=== PATIENT | male | born 1980 | race African-American/Black ===

== ENCOUNTER 2017-07-23 04:44 | Observation (INO) ==
[2017-07-23] MEDS ORDERED: Nitroglycerin 0.4 MG TAB.SUBL SL PRN (05:08)
[2017-07-23] MEDS ORDERED: Aspirin 325 MG TABLET PO ONE (05:08)
--- NOTE | 2017-07-23 05:11 | Emergency Department Note ---
Disposition Clinical Impression: Chest pain Qualifiers: Chest pain type: unspecified Qualified Code(s): R07.9 - Chest pain, unspecified Dyspnea Qualifiers: Dyspnea type: dyspnea on exertion Qualified Code(s): R06.09 - Other forms of dyspnea Disposition: Admitted As Inpatient Condition: Good Time of Disposition: 05:18 Chest Pain HPI - General Chief Complaint: ED Chest Pain Stated Complaint: CP Time Seen by Provider: 07/23/17 04:55 Source: patient Mode of arrival: ambulatory Limitations: no limitations Vital Signs Reviewed: Yes Nursing Notes Reviewed: Yes - History of Present Illness HPI Narrative: Patient 36-year-old male with past medical history of hypertension, pericarditis that was diagnosed in 2013. He presents today due to chest pain. He states that the chest pain began about midnight which is 5 hours prior to arrival. Describes the pain as left-sided, dull ache with exacerbations of sharp pain, radiation to his left upper extremity. Associated shortness of breath. Currently rates his pain a 5 out of 10. Pain is worse when lying flat on his back, better when sitting up. He does state that this feels somewhat similar to previous episode of pericarditis. Denies any nausea, vomiting, fevers , abdominal pain, hematuria, dysuria, change in bowel habits. Denies any history of CT or stents. He does admit that he recently had an echocardiogram performed by a primary care physician and he is following up with rn interventional tomorrow to discuss these results. Severity scale (1-10): 7 - Related Data Home Medications Medication Instructions Recorded Confirmed Buspirone HCl [Buspar] 10 mg PO BID 07/18/17 07/23/17 Chlorthalidone 25 mg PO DAILY 07/18/17 07/23/17 hydrOXYzine HCl [Hydroxyzine HCl] 25 mg PO HS PRN 07/18/17 07/23/17 Allergies Allergy/AdvReac Type Severity Reaction Status Date / Time No Known Allergies Allergy Verified 07/18/17 09:02 Constitutional: Denies: fever ENT ED: Denies: ear pain, congestion, dysphagia Cardiovascular: Reports: chest pain Respiratory: Reports: dyspnea Gastrointestinal: Denies: abdominal pain, nausea, vomiting, diarrhea, constipation, hematemesis, melena, hematochezia Genitourinary: Denies: urgency, dysuria, frequency, hematuria Integumentary: Denies: rash Neurological: Denies: headache, weakness, numbness, paresthesias Chest Pain PMH - Past Medical History Medical history: Reports: hypertension - Social History Smoking Status: Former smoker Alcohol use: Reports: none Drug use: Reports: none Physical Exam - General Limitations: no limitations General appearance: alert - Head Head exam: atraumatic, normocephalic, normal inspection - Eye Eye exam: Present: normal appearance, PERRL, EOMI - ENT ENT exam: normal exam, normal oropharynx, mucous membranes moist - Neck Neck exam: Present: normal inspection, full ROM, trachea midline - Chest Chest inspection: Present: normal inspection, symmetric chest wall rise. Absent : tenderness, rash - Respiratory Respiratory exam: Present: normal lung sounds bilaterally. Absent: respiratory distress, wheezes, stridor, accessory muscle use, prolonged expiratory phase - Cardiovascular Cardiovascular exam: Present: regular rate, normal rhythm, normal heart sounds. Absent: systolic murmur, diastolic murmur, rubs - Abdominal Exam Abdominal exam: Present: soft, Non-Tender. Absent: tenderness, distention, guarding, rebound, rigidity - Extremities Exam Extremities exam: Present: normal inspection, full ROM. Absent: tenderness, pedal edema - Neurological Exam Neurological exam: Present: alert, oriented X3 - Psychiatric Psychiatric exam: Present: normal affect, normal mood - Skin Skin exam: Present: warm, dry, intact, normal color Course Course Narrative: Patient hypertensive with systolic 140s to 150s. Otherwise, the rest of vitals within normal limits. Physical exam shows lungs clear to auscultation, heart regular rate and rhythm. No appreciable rub or murmur. No reproducible chest pain on exam. No rash. Abdomen soft and nontender. EKG shows no acute ST elevation that would denote STEMI. However, he does have S1,Q3, T3 formation. Since his pain is worse with deep inspiration and worse with movement and he has this EKG finding, concerned for possible PE. Also concern for possible early pericarditis. We will obtain basic blood work, troponin, chest x-ray. We will likely order a CTA for further assessment. We will give the patient aspirin 325 mg, nitroglycerin for pain control. We will consider morphine if the patient has no relief with nitroglycerin. 06:36 mild elevation in ESR. Otherwise, CRP within normal limits. Troponin negative. BNP within normal limits. CBC and BMP shows no major abnormality. Patient was reevaluated after receiving 2 nitroglycerin. He states that his pain has reduced from 5 to a 3. He does still complain of some mild chest pain. According to records, patient had an echocardiogram recently that shows moderate diastolic dysfunction with an EF of 60%. Patient has never had a stress test or heart. Discussed admitting the patient for chest pain rule out, trending troponins. He is agreeable with this plan. Will cover with lovenox 1mg/kg. Vital Signs Temperature 98.2 F 07/23/17 04:47 Pulse Rate 84 07/23/17 04:47 Respiratory Rate 18 07/23/17 04:47 Blood Pressure 147/108 07/23/17 04:47 O2 Sat by Pulse Oximetry 100 07/23/17 04:47 Temperature 98.3 F 07/24/17 16:39 Pulse Rate 100 07/24/17 16:39 Respiratory Rate 16 07/24/17 16:39 Blood Pressure 115/78 07/24/17 16:39 O2 Sat by Pulse Oximetry 96 07/24/17 16:39 Oxygen Delivery Oxygen Delivery Room Air Chest Pain - MDM Narrative Medical decision making narrative: Patient hypertensive with systolic 140s to 150s. Otherwise, the rest of vitals within normal limits. Physical exam shows lungs clear to auscultation, heart regular rate and rhythm. No appreciable rub or murmur. No reproducible chest pain on exam. No rash. Abdomen soft and nontender. EKG shows no acute ST elevation that would denote STEMI. However, he does have S1,Q3, T3 formation. Since his pain is worse with deep inspiration and worse with movement and he has this EKG finding, concerned for possible PE. Also concern for possible early pericarditis. We will obtain basic blood work, troponin, chest x-ray. We will likely order a CTA for further assessment. We will give the patient aspirin 325 mg, nitroglycerin for pain control. We will consider morphine if the patient has no relief with nitroglycerin. 06:36 mild elevation in ESR. Otherwise, CRP within normal limits. Troponin negative. BNP within normal limits. CBC and BMP shows no major abnormality. Patient was reevaluated after receiving 2 nitroglycerin. He states that his pain has reduced from 5 to a 3. He does still complain of some mild chest pain. According to records, patient had an echocardiogram recently that shows moderate diastolic dysfunction with an EF of 60%. Patient has never had a stress test or heart. Discussed admitting the patient for chest pain rule out, trending troponins. He is agreeable with this plan. Will cover with lovenox 1mg/kg. - Medical Records Medical records reviewed: Yes I reviewed the patient's medical records. - Lab Data Lab results reviewed: Yes I reviewed the patient's lab results. Result diagrams: 07/24/17 04:42 07/24/17 04:42 Lab Results 07/23/17 07/23/17 07/23/17 Range/Units 05:16 05:16 05:16 WBC 7.4 (4.3-11.1) K/mcL RBC 5.99 H (4.19-5.50) M/mcL Hgb 15.0 (12.9-16.9) g/dL Hct 47.1 (37.5-50.1) % MCV 78.6 L (83.0-100.0) fL MCH 25.0 L (28.0-33.3) pg MCHC 31.8 (31.6-35.5) g/dL RDW 13.2 (11.5-14.5) % Plt Count 318 (140-400) K/mcL MPV 9.1 L (9.4-12.4) fL Immature Gran % 0.5 (0-4) % Seg Neutrophils % 58.6 % Lymphocytes % 31.2 % Monocytes % 7.1 % Eosinophils % 1.9 % Basophils % 0.7 % Neutrophils # 4.4 (1.6-8.9) K/mcL Lymphocytes # 2.3 (0.6-4.6) K/mcL Monocytes # 0.5 (0.0-1.3) K/mcL Eosinophils # 0.1 (0.0-0.6) K/mcL Basophils # 0.1 (0.0-0.2) K/mcL ESR (0-10) mm/hr PT 10.7 (9.4-12.1) Seconds INR 1.0 APTT 28.0 (26.0-36.0) Seconds Sodium (136-145) mEq/L Potassium (3.5-5.1) mEq/L Chloride (98-107) mEq/L Carbon Dioxide (23-29) mEq/L BUN (6-20) mg/dL Creatinine (0.70-1.30) mg/dL Est GFR ( Amer) (> 60) Est GFR (Non-Af Amer) (> 60) BUN/Creatinine Ratio (6-26) Glucose (70-105) mg/dL Est Mean Plasma Glucose mg/dl Hemoglobin A1c ( - 5.6) % Calculated Osmolality (280-300) Calcium (8.6-10.3) mg/dL Troponin I (< 0.04) ng/mL C-Reactive Protein (Less than 10) mg/L B-Natriuretic Peptide 9 (Less than 100) pg/mL 07/23/17 07/23/17 07/23/17 Range/Units 05:16 05:16 05:16 WBC (4.3-11.1) K/mcL RBC (4.19-5.50) M/mcL Hgb (12.9-16.9) g/dL Hct (37.5-50.1) % MCV (83.0-100.0) fL MCH (28.0-33.3) pg MCHC (31.6-35.5) g/dL RDW (11.5-14.5) % Plt Count (140-400) K/mcL MPV (9.4-12.4) fL Immature Gran % (0-4) % Seg Neutrophils % % Lymphocytes % % Monocytes % % Eosinophils % % Basophils % % Neutrophils # (1.6-8.9) K/mcL Lymphocytes # (0.6-4.6) K/mcL Monocytes # (0.0-1.3) K/mcL Eosinophils # (0.0-0.6) K/mcL Basophils # (0.0-0.2) K/mcL ESR 15 H (0-10) mm/hr PT (9.4-12.1) Seconds INR APTT (26.0-36.0) Seconds Sodium 139 (136-145) mEq/L Potassium 3.6 (3.5-5.1) mEq/L Chloride 106 (98-107) mEq/L Carbon Dioxide 25 (23-29) mEq/L BUN 13 (6-20) mg/dL Creatinine 1.09 (0.70-1.30) mg/dL Est GFR ( Amer) > 60 (> 60) Est GFR (Non-Af Amer) > 60 (> 60) BUN/Creatinine Ratio 12 (6-26) Glucose 145 H (70-105) mg/dL Est Mean Plasma Glucose mg/dl Hemoglobin A1c ( - 5.6) % Calculated Osmolality 291 (280-300) Calcium 9.4 (8.6-10.3) mg/dL Troponin I < 0.03 (< 0.04) ng/mL C-Reactive Protein < 5 (Less than 10) mg/L B-Natriuretic Peptide (Less than 100) pg/mL 07/23/17 Range/Units 05:16 WBC (4.3-11.1) K/mcL RBC (4.19-5.50) M/mcL Hgb (12.9-16.9) g/dL Hct (37.5-50.1) % MCV (83.0-100.0) fL MCH (28.0-33.3) pg MCHC (31.6-35.5) g/dL RDW (11.5-14.5) % Plt Count (140-400) K/mcL MPV (9.4-12.4) fL Immature Gran % (0-4) % Seg Neutrophils % % Lymphocytes % % Monocytes % % Eosinophils % % Basophils % % Neutrophils # (1.6-8.9) K/mcL Lymphocytes # (0.6-4.6) K/mcL Monocytes # (0.0-1.3) K/mcL Eosinophils # (0.0-0.6) K/mcL Basophils # (0.0-0.2) K/mcL ESR (0-10) mm/hr PT (9.4-12.1) Seconds INR APTT (26.0-36.0) Seconds Sodium (136-145) mEq/L Potassium (3.5-5.1) mEq/L Chloride (98-107) mEq/L Carbon Dioxide (23-29) mEq/L BUN (6-20) mg/dL Creatinine (0.70-1.30) mg/dL Est GFR ( Amer) (> 60) Est GFR (Non-Af Amer) (> 60) BUN/Creatinine Ratio (6-26) Glucose (70-105) mg/dL Est Mean Plasma Glucose 134 mg/dl Hemoglobin A1c 6.3 H ( - 5.6) % Calculated Osmolality (280-300) Calcium (8.6-10.3) mg/dL Troponin I (< 0.04) ng/mL C-Reactive Protein (Less than 10) mg/L B-Natriuretic Peptide (Less than 100) pg/mL - Radiology Data Radiology results reviewed: Yes I reviewed the patient's radiology results. - EKG Data EKG attestation: Yes I reviewed and interpreted this EKG. EKG results narrative: 07/23/2017 at 04:54. Normal sinus rhythm. Rate 89. MA 160. QRS. QTC 383. Normal axis. No acute STEMI. S1,Q3, T3 formation present. Heart Score - Score History: Moderately Suspicious EKG: Non Specific repolarisation Disturbance Age: Less than 45 Risk Factors: 1-2 risk factors Troponin: Less than normal limit HEART Score Total: 3 S.B.A.R. - S.B.A.R. Situation: Demographics, MOA Background: Presenting Complaint, Relevant PMH, Meds, & Allergies Assessment: Vital Signs, Course and respsone to treatment, Exam Concerns, Patient/Family Expectation, Pertinant Lab Results, Outstanding Labs Recommendation: Barrier(s) to disposition, Recommendation based on pending studies, treatments, or consults S.B.A.R. Report Given to: Dr. Beckett S.B.A.RPascual Repor Time: 06:48 Attestation Statement - Attestation Attestation: I examined this patient and my medical decision-making was reviewed with the Resident Physician. I agree with the documented findings, disposition and treatment plan as described except to the extent set forth below. Findings consistent with chest pain. There is evidence of S1 every [address] of the chest was performed. No evidence of pulmonary embolism. Recommend outpatient provocative testing in 48hours.
[2017-07-23 05:27] LABS: Basophils # 0.1 K/mcL (0.0-0.2); Basophils % 0.7 %; Eosinophils # 0.1 K/mcL (0.0-0.6); Eosinophils % 1.9 %; Hematocrit 47.1 % (37.5-50.1); Immature Granulocytes % 0.5 % (0-4); Lymphocytes # 2.3 K/mcL (0.6-4.6); Lymphocytes % 31.2 %; Mean Corpuscular HGB Conc 31.8 g/dL (31.6-35.5); Mean Corpuscular Volume 78.6 fL (83.0-100.0); Mean Platelet Volume 9.1 fL (9.4-12.4); Monocytes # 0.5 K/mcL (0.0-1.3); Monocytes % 7.1 %; Neutrophils # 4.4 K/mcL (1.6-8.9); Platelet Count 318 K/mcL (140-400); Red Blood Count 5.99 M/mcL (4.19-5.50); Red Cell Distribution Width 13.2 % (11.5-14.5); Segmented Neutrophils % 58.6 %
[2017-07-23 05:34] LABS: Prothrombin Time 10.7 Seconds (9.4-12.1)
[2017-07-23 05:43] LABS: BUN/Creatinine Ratio 12 (6-26); Blood Urea Nitrogen 13 mg/dL (6-20); C-Reactive Protein < 5 mg/L (Less than 10); Calcium 9.4 mg/dL (8.6-10.3); Carbon Dioxide 25 mEq/L (23-29); Chloride 106 mEq/L (98-107); Glucose 145 mg/dL (70-105); Osmolality,Calculated 291 (280-300); Potassium 3.6 mEq/L (3.5-5.1); Sodium 139 mEq/L (136-145); eGFR For African Americans > 60 (> 60); eGFR For Non-African Americans > 60 (> 60)
[2017-07-23] MEDS ORDERED: *HR* Enoxaparin 100 MG/ML SYRINGE SQ STA (06:41)
--- NOTE | 2017-07-23 08:56 | Internal Med History&Physical ---
Date of Encounter: 07/23/17 Time of Encounter: 08:36 Assessment and Plan (1) Chest pain Current visit: Yes Status: Acute Possible etiologies include recurrent pericarditis, anxiety, acute coronary syndrome. He does have history of previous pericarditis. I was not able to appreciate any ST or OR segment changes on ECG interpretation. ESR borderline elevated but CRP normal. CTA did not show PE or pericardial abnormalities. Initial troponin negative. - Cycle troponin - Oxycodone SL, Nitro, prn pain. - Consult Cardiology. recommendations appreciated if patient requires continuation of ACS, patient received Lovenox in ED. Also appreciate recommendation if outpatient versus continuing an inpatient workup. He has Cardiology office visit scheduled for tomorrow. Qualifiers: Chest pain type: unspecified Qualified Code(s): R07.9 - Chest pain, unspecified (2) Dyspnea Current visit: Yes Status: Acute Reviewing prior records on EMR, prior to admission for heart failure. His only major criteria is orthopnea, and minor criteria of dyspnea on ordinary exertion. Technically would not meet diagnosis based on history, physical exam , and CTA results. Would appreciate Cardiology recommendations on dyspnea. Qualifiers: Dyspnea type: dyspnea on exertion Qualified Code(s): R06.09 - Other forms of dyspnea (3) Diastolic dysfunction Current visit: No Status: Acute As seen on echocardiogram done 2 months ago. Potentially heart failure but not meeting diagnosis at this point. (4) Elevated hemoglobin A1c Current visit: Yes Status: Acute Reviewing prior records, A1C was 6.5% and today fasting glucose 140s, likely has diabetes mellitus. Will repeat A1C today, if >6.5%, he will need diabetes education upon discharge with follow-up with primary care physician. (5) Microcytosis Current visit: No Status: Acute Internal Medicine - H&P: HPI History of present illness: Mr. Foy is a 36 year old male with past medical history of hypertension, pericarditis (2013) presented for acutely worsening chest pain. Initial onset was 3 days ago as patient was laying down. Described as partly pressure/heavy and partly sharp located in left side of chest. Pain feels similar to prior episode of pericarditis. No radiation of pain. Pain comes and goes and lasts for several minutes at a time with left arm tingling. He does have worsening BISHOP, diaphoresis, and night sweats as well. Denies fevers/chills, n/v, recent URI/illness, sick contacts. Family history of mother with unspecified heart failure diagnosed at age 48. He reports having a left heart catheter in 2013, unsure of results. Recent Echocardiogram done in 05/2017 showed LVEF of 60% with moderate diastolic dysfunction. He had recent office visit with Hematology /Oncology 07/18/17 for microcytosis of unknown etiology. So far workup has been negative and they referred him to Cardiology for concern for heart failure. He has office appointment with Cardiology tomorrow but since pain became acutely worsened he presented to ED. In ED a ESR borderline elevated at 15, CRP within normal limits. CTA was negative for PE, BNP was within normal limits, initial troponin negative. ECG showed no ST/T wave changes. He was given Lovenox 1 mg/kg, aspirin 325 mg, and 2 nitroglycerin which he reported relieved his pain somewhat. Past Med Surg Social Fam HX - Past Medical History Medical history: hypertension - Social History Smoking Status: Former smoker Smokeless Tobacco Status: No Alcohol use: none Drug use: none Internal Medicine - H&P: Meds Buspirone HCl [Buspar] 10 mg PO BID 07/18/17 [History] Chlorthalidone 25 mg PO DAILY 07/18/17 [History] hydrOXYzine HCl [Hydroxyzine HCl] 25 mg PO HS PRN 07/18/17 [History] 3 Allergy/AdvReac Type Severity Reaction Status Date / Time No Known Allergies Allergy Verified 07/18/17 09:02 All Systems PM: A 10-system review of systems was performed and is negative for pertinent findings except as documented above in the HPI. - Constitutional Constitutional: excessive sweating, night sweats, no chills, no fever(s) - EENT Eyes: no change in vision, no discharge, no pain, no photophobia Ears: no ear discharge, no ear pain, no tinnitus Nose, mouth and throat: no dysphagia, no nasal discharge, no neck pain, no sore throat - Cardiovascular Cardiovascular ROS IM: chest pain, diaphoresis, dyspnea, dyspnea on exertion, no lightheadedness, no palpitations, no syncope - Respiratory Respiratory: dyspnea, no cough, no wheezing, no excessive phlegm production - Gastrointestinal Gastrointestinal: no abdominal pain, no diarrhea, no hematemesis, no hematochezia, no melena, no nausea, no vomiting - Musculoskeletal Musculoskeletal ROS IM: numbness, tingling, no arthralgias, no joint swelling, no muscle weakness - Integumentary Integumentary IM: no rash, no unusual bruising - Neurological Neurological ROS: no confusion, no convulsions, no focal weakness, no numbness, no tingling, no tremor(s) - Hematologic/Lymphatic Hematologic/Lymphatic: no easy bruising - Constitutional Vitals: Temp Pulse Resp BP Pulse Ox 98.2 F 70 18 119/83 99 07/23/17 04:47 07/23/17 07:55 07/23/17 07:55 07/23/17 07:55 07/23/17 07:55 - Head Head exam: Present: atraumatic, normocephalic - Eye Eye exam: Present: PERRL, conjuntiva pink, sclera anicteric Pupils: Present: PERRL - Neck Neck exam general surgery: Present: supple, trachea midline. Absent: lymphadenopathy - Respiratory Respiratory exam: Present: CTAB. Absent: accessory muscle use, rales, rhonchi, wheezes - Cardiovascular Cardiovascular exam: Present: RRR, +S1, +S2. Absent: diastolic murmur, gallop, rubs, systolic murmur - GI/Abdominal GI/Abdominal exam: Present: normal bowel sounds, soft, no peritoneal signs. Absent: distended, tenderness - Extremities Exam Extremities exam: Present: warm, radial pulses palpable and symmetrical. Absent : calf tenderness, cyanotic, pedal edema - Neurological Exam Neurological exam: Present: CN II-XII intact, oriented X3, no focal deficits. Absent: pronater drift, facial droop, speech deficit - Skin Skin exam: Present: dry, intact Internal Med - H&P Results - Labs CBC & Chem 7: 07/23/17 05:16 07/23/17 05:16 Labs: Short CBC 07/23/17 Range/Units 05:16 WBC 7.4 (4.3-11.1) K/mcL Hgb 15.0 (12.9-16.9) g/dL Hct 47.1 (37.5-50.1) % Plt Count 318 (140-400) K/mcL Neutrophils # 4.4 (1.6-8.9) K/mcL BMP 07/23/17 05:16 Sodium 139 Potassium 3.6 Chloride 106 Carbon Dioxide 25 BUN 13 Creatinine 1.09 Glucose 145 H Calcium 9.4 Cardiac Enzymes 07/23/17 Range/Units 05:16 Troponin I < 0.03 (< 0.04) ng/mL - Impressions ITS Impressions Chest X-Ray 07/23/17 05:08 IMPRESSION: No acute process. D/ / Skyler Gastelum MD / Skyler Gastelum MD Interpreting Provider: Skyler Gastelum MD Chest CTA 07/23/17 05:24 IMPRESSION: No evidence of pulmonary embolism or acute pulmonary abnormality. No pericardial effusion. D/ / Perez Almanza MD / Perez Almanza MD Interpreting Provider: Perez Almanza MD
[2017-07-23] MEDS ORDERED: OXYCODONE Oral CONC 10 MG/0.5 ML ORAL.SYG SL PRN (09:45)
[2017-07-23] MEDS ORDERED: Naloxone 0.4 MG/ML INJ IVP PRN (09:45)
[2017-07-23] MEDS ORDERED: hydrOXYzine pamoate 25 MG CAPSULE PO PRN (09:54)
[2017-07-24 04:59] LABS: Basophils % 0.5 %; Eosinophils # 0.1 K/mcL (0.0-0.6); Eosinophils % 1.8 %; Hematocrit 44.9 % (37.5-50.1); Hemoglobin 14.6 g/dL (12.9-16.9); Immature Granulocytes % 0.3 % (0-4); Lymphocytes # 2.4 K/mcL (0.6-4.6); Mean Corpuscular HGB Conc 32.5 g/dL (31.6-35.5); Mean Corpuscular Hemoglobin 25.1 pg (28.0-33.3); Mean Corpuscular Volume 77.3 fL (83.0-100.0); Mean Platelet Volume 8.8 fL (9.4-12.4); Monocytes # 0.6 K/mcL (0.0-1.3); Monocytes % 7.5 %; Neutrophils # 4.8 K/mcL (1.6-8.9); Platelet Count 272 K/mcL (140-400); Red Blood Count 5.81 M/mcL (4.19-5.50); Red Cell Distribution Width 13.2 % (11.5-14.5); Segmented Neutrophils % 59.9 %
[2017-07-24 05:38] LABS: BUN/Creatinine Ratio 11 (6-26); Blood Urea Nitrogen 12 mg/dL (6-20); Calcium 9.4 mg/dL (8.6-10.3); Carbon Dioxide 27 mEq/L (23-29); Chloride 105 mEq/L (98-107); Glucose 114 mg/dL (70-105); Osmolality,Calculated 291 (280-300); Potassium 3.5 mEq/L (3.5-5.1); Sodium 140 mEq/L (136-145); eGFR For African Americans > 60 (> 60); eGFR For Non-African Americans > 60 (> 60)
[2017-07-24 08:06] LABS: Hemoglobin A1C 6.3 %
--- NOTE | 2017-07-24 09:06 | Electrocardiograph Report ---
[facility] [employer] [facility] Test Date: 2017-07-23 Pat Name: Ricardo Foy Department: 104 Room: 2SH33 Gender: M Regulatory Auditor: EKP : 1980 Requested By: Silvano Mejia Order Number: [id number] Reading MD: Timur Lake MD Measurements Intervals [place] Rate: 93 P: 117 WI: 139 QRS: 114 QRSD: 97 T: 141 QT: 332 QTc: 383 Interpretive Statements SINUS RHYTHM ARM LEADS REVERSED ATYPICAL ECG Electronically Signed On 07-24-2017 9:04:59 EST by Timur Lake MD
--- NOTE | 2017-07-24 14:37 | Cardiology Consult Note ---
<Raúl Wu R - Last Filed: 07/24/17 15:08> Date of Encounter: 07/24/17 Time of Encounter: 14:30 Assessment and Plan (1) Chest pain Current Visit: Yes Status: Acute Hx of pericarditis in 2012. LHC at that time showed no CAD. EKG without ischemic changes. Troponin negative x 2. No evidence of pericarditis on EKG and no acute illness. Chest pain worse when lying flat, not worsened on exertion. Echo 05/2017 EF preserved, moderate diastolic dysfunction. At this time do not suspect pericarditis or ACS. Atypical symptoms. Stop heparin gtt. No further cardiac work-up warranted at this time. Recommend evaluating for noncardiac causes of chest pain. Anticipate sign off once seen and evaluated by Dr. Bah. Qualifiers: Chest pain type: unspecified Qualified Code(s): R07.9 - Chest pain, unspecified (2) Diastolic dysfunction Current Visit: Yes Status: Chronic Echo 05/2017 moderate diastolic dysfunction. Pt admits to dyspnea, difficult to play with his children. Recent PFTs normal. Pt admits to excessive salt and fluid intake. Discussed and recommended Na and fluid restricted diet. CXR without acute findings and normal BNP. Chest CT negative for PE. Discussed with Dr. Bah, will increase Chlorthalidone to 50mg daily. Discussion w patient/family: The assessment and plan as outlined above was discussed with the patient and/or family members who expressed understanding and agreement. All questions were answered. Thank you for involving us in the care of your patient. Please call with any questions. I will discuss all the above with Dr. Bah and make changes as necessary. History of Present Illness Consult date: 07/24/17 Requesting physician: Deborah Teague Consult reason: chest pain Chief complaint: chest pain, dyspnea History of present illness: Mr. Foy is a 36 year old male with past medical history of hypertension, pericarditis (2012) with normal LHC at that time that presented for worsening chest pain. Initial onset was 3 days ago as patient was laying down, worse when lying down. Described as partly pressure/heavy and partly sharp located in left side of chest. Pain feels similar to prior episode of pericarditis. No radiation of pain. He reports worsening BISHOP, diaphoresis, and night sweats as well. Denies fevers/chills, n/v, recent URI/illness, sick contacts. Echocardiogram done in 05/2017 showed LVEF of 60% with moderate diastolic dysfunction. He had recent office visit with Hematology/Oncology 07/18/17 for microcytosis of unknown etiology. So far workup has been negative and they referred him to Cardiology for concern for heart failure. He has office appointment with Cardiology 07/26/17. In ED ESR borderline elevated at 15, CRP within normal limits. CTA was negative for PE, BNP was within normal limits, troponin negative x2. ECG showed no significant ST/T wave changes. He was given Lovenox 1 mg/kg, aspirin 325 mg, and 2 nitroglycerin which he reported relieved his pain somewhat. Pt is currently chest pain free. He states his most bothersome symptom is dyspnea and he cannot play with his kids without getting short of breath. Upon further discussion, pt admits to excessive salt intake and excessive fluid intake >2L per day and mostly pop. Cardiology consulted for chest pain. Prior CV testing: TTE 06/08/17:LVEF 60%. Moderate left ventricular diastolic dysfunction. Normal right ventricular structure and function. No significant valvular dysfunction. No pulmonary hypertension. Past Med Surg Social Fam HX - Past Medical History Medical history: hypertension - Social History Smoking Status: Former smoker Smokeless Tobacco Status: No Alcohol use: none Drug use: none Medications and Allergies Buspirone HCl [Buspar] 10 mg PO BID 07/18/17 [History] Chlorthalidone 25 mg PO DAILY 07/18/17 [History] hydrOXYzine HCl [Hydroxyzine HCl] 25 mg PO HS PRN 07/18/17 [History] 3 Allergy/AdvReac Type Severity Reaction Status Date / Time No Known Allergies Allergy Verified 07/18/17 09:02 All Systems Review: A 10-system review of systems was performed and is negative for pertinent findings except as documented above in the HPI. - Cardiovascular Cardiovascular: as per HPI, chest pain at rest, chest pain with exertion, dyspnea at rest, dyspnea on exertion - Respiratory Respiratory: dyspnea Physical Examination Vital Signs, Last 4 Hours Temp Pulse Resp BP Pulse Ox 07/24/17 12:50 98.1 F 91 16 117/87 97 Vital Signs Temp Pulse Resp BP Pulse Ox 07/24/17 12:50 98.1 F 91 16 117/87 97 07/24/17 08:13 97.9 F 86 15 131/84 97 07/24/17 04:00 98.0 F 97 18 132/89 100 07/24/17 01:23 97 07/24/17 01:00 72 18 141/95 97 07/23/17 21:00 98.2 F 81 16 141/95 97 07/23/17 17:30 18 132/90 99 07/23/17 17:00 84 18 132/90 99 Intake and Output 07/23/17 07/24/17 07/24/17 23:59 07:59 15:59 Intake Total 0 / 0 480 / 480 Output Total 0 / 0 0 / 0 Balance 0 / 0 0 / 0 480 / 480 Intake: Oral 0 / 0 480 / 480 Output: Urine 0 / 0 0 / 0 Other: Meal Lunch Percent of Meal Consumed 100% Weight 95.4 kg Patient Weight 07/24/17 23:59 Weight 95.4 kg General: Conversant, No Apparent Distress HEENT: Atraumatic, Normocephaly, Mucus Membranes Moist Neck: No JVD, Normal carotid pulses Cardiac: Reg Rate and Rhythm, Normal S1 and S2, No Murmur Lungs: Normal Breath Sounds, No Wheeze, Rales, Rhonchi Neuro: Alert and responsive, No focal deficits noted Abdomen: Soft, Non-Tender Skin: No rashes noted on visualized skin Musculoskeletal: No Chest Wall Tenderness Extremities: No Clubbing, No Cyanosis, No Edema, Normal Pulses Results 07/24/17 04:42 07/24/17 04:42 Lab Results 07/23/17 07/24/17 07/24/17 15:21 04:42 04:42 WBC 8.0 Hgb 14.6 Hct 44.9 Plt Count 272 Sodium 140 Potassium 3.5 Chloride 105 Carbon Dioxide 27 BUN 12 Creatinine 1.13 Glucose 114 H Calcium 9.4 Troponin I < 0.03 Short CBC 07/24/17 Range/Units 04:42 WBC 8.0 (4.3-11.1) K/mcL Hgb 14.6 (12.9-16.9) g/dL Hct 44.9 (37.5-50.1) % Plt Count 272 (140-400) K/mcL Neutrophils # 4.8 (1.6-8.9) K/mcL BMP 07/24/17 Range/Units 04:42 Sodium 140 (136-145) mEq/L Potassium 3.5 (3.5-5.1) mEq/L Chloride 105 (98-107) mEq/L Carbon Dioxide 27 (23-29) mEq/L BUN 12 (6-20) mg/dL Creatinine 1.13 (0.70-1.30) mg/dL Glucose 114 H (70-105) mg/dL Calcium 9.4 (8.6-10.3) mg/dL Cardiac Enzymes 07/23/17 Range/Units 15:21 Troponin I < 0.03 (< 0.04) ng/mL Active Medications Acetaminophen (Tylenol) 650 mg PO Q6HR PRN PRN Reason: Mild Pain/Fever Stop: 01/22/18 09:46 Buspirone HCl (Buspar) 10 mg PO BID CAROLE Stop: 01/22/18 10:01 Last Admin: 07/24/17 10:58 Dose: 10 mg Chlorthalidone (Chlorthalidone) 25 mg PO DAILY CAROLE Stop: 01/22/18 10:01 Last Admin: 07/24/17 09:10 Dose: 25 mg Hydroxyzine Pamoate (Hydroxyzine Pamoate) 25 mg PO HS PRN PRN Reason: Sleep Naloxone HCl (Narcan) 0.4 mg IVP Q2MIN PRN PRN Reason: SEE COMMENTS Stop: 01/22/18 09:46 Nitroglycerin (Nitroglycerin) 0.4 mg SL Q5MIN PRN PRN Reason: Chest Pain Stop: 01/22/18 05:09 Last Admin: 07/23/17 05:27 Dose: 0.4 mg Oxycodone HCl (Oxycodone Oral Conc) 5 mg SL Q4H PRN; Protocol PRN Reason: mild to moderate pain Stop: 01/22/18 09:46 - Imaging and Cardiology Echo: report reviewed - EKG Interpretation EKG results cardiology: personally reviewed (SR) Consult Discharge Plan - Plan Referrals: Chandan Abel MD [Primary Care Provider] - <Yanira Bah - Last Filed: 07/24/17 17:28> Date of Encounter: 07/24/17 - Attending Attestation I examined this patient and my medical decision-making was reviewed with the HEALTH PHYSICIST. I agree with the documented findings, disposition and treatment plan as described. Mr. Foy presents with symptoms of dyspnea as well as chest pain. He states symptoms of dyspnea were ongoing for a few months. Chest pain symptoms he just started noticing over the weekend and are atypical in presentation - describes pleuritic component sometimes exacerbated by laying flat but not always. Workup so far has demonstrated negative troponins, unremarkable CXR, CTA negative for PE, Echo normal LVEF, BNP normal. Blood pressures initially hypertensive. CRP normal, mildly elevated ESR. ECG unremarkable. Recent PFTs are normal. Reviewed patient's medical chart - not taking BP medication documented on PCP visit 07/23/2016. Hypertension could be an explanation to patient's symptoms of dyspnea. He's been hypertensive on his outpatient BP readings. I also personally reviewed his Echo again - documented as moderate diastolic dysfunction. However, valsalva was not performed and therefore degree of diastolic dysfunction could not be quantified. Nevertheless, it is reasonable to increase his BP medication which is also a diuretic at this time. He does have a history of pericarditis - no present ECG evidence of pericarditis. No friction rub on exam. Only pertinent finding is a mildly elevated ESR (CRP is normal). There are no definite criteria for pericarditis in this case. However, his symptoms of pleuritic chest pain and presence of mild elevation of ESR is suspicious. Outside of uncontrolled BP (which appears relatively good now), there does not appear to be a definite explanation for his symptoms. I have given the patient the option of treatment for pericarditis. He is open to a trial. We will start colchicine and indomethacin. Assessment and Plan Discussion w patient/family: The assessment and plan as outlined above was discussed with the patient and/or family members who expressed understanding and agreement. All questions were answered. Thank you for involving us in the care of your patient. Please call with any questions. History of Present Illness History of present illness: Mr. Fyo is a 36 year old male All Systems Review: A 10-system review of systems was performed and is negative for pertinent findings except as documented above in the HPI. Physical Examination Vital Signs, Last 4 Hours Temp Pulse Resp BP Pulse Ox 07/24/17 16:39 98.3 F 100 16 115/78 96 Results 07/24/17 04:42 07/24/17 04:42 Lab Results 07/24/17 07/24/17 04:42 04:42 WBC 8.0 Hgb 14.6 Hct 44.9 Plt Count 272 Sodium 140 Potassium 3.5 Chloride 105 Carbon Dioxide 27 BUN 12 Creatinine 1.13 Glucose 114 H Calcium 9.4
[2017-07-24] MEDS: Acetaminophen 325 MG TABLET PO PRN (15:48)
[2017-07-24] MEDS: Colchicine 0.6 MG TABLET PO SCH (20:35)
--- NOTE | 2017-07-24 21:33 | Internal Med Progress Note ---
Date of Encounter: 07/24/17 Time of Encounter: 15:43 - Assessment and plan (1) Chest pain Current Visit: Yes Status: Acute Assessment and plan: Currently resolved. Etiology unclear but pericarditis is a possibility. Cardiology consulted and recommendations are appreciated. Will do a trial of colchicine and indomethacin. Qualifiers: Chest pain type: unspecified Qualified Code(s): R07.9 - Chest pain, unspecified (2) Dyspnea Current Visit: Yes Status: Acute Qualifiers: Dyspnea type: dyspnea on exertion Qualified Code(s): R06.09 - Other forms of dyspnea (3) Diastolic dysfunction Current Visit: Yes Status: Chronic (4) Elevated hemoglobin A1c Current Visit: Yes Status: Acute Assessment and plan: A1C 6.3% patient is pre-diabetic, he will need close monitoring and follow-up with primary care physician in regards to diet and lifestyle modification. (5) Microcytosis Current Visit: No Status: Acute (6) Hypertension Current Visit: Yes Status: Acute Assessment and plan: Continue chlorthalidone Qualifiers: Hypertension type: essential hypertension Qualified Code(s): I10 - Essential (primary) hypertension - Subjective Interval history: Patient hasn't had any episodes of chest pain, dyspnea about the same. - Constitutional Vitals: Temp Pulse Resp BP Pulse Ox 97.7 F 95 20 123/85 97 07/24/17 20:00 07/24/17 20:00 07/24/17 20:00 07/24/17 20:00 07/24/17 20:00 - Head Head exam: Present: atraumatic, normocephalic - Eye Eye exam: Present: PERRL, conjuntiva pink, sclera anicteric Pupils: Present: PERRL - Neck Neck exam general surgery: Present: supple, trachea midline. Absent: lymphadenopathy - Respiratory Respiratory exam: Present: CTAB. Absent: accessory muscle use, rales, rhonchi, wheezes - Cardiovascular Cardiovascular exam: Present: RRR, +S1, +S2. Absent: diastolic murmur, gallop, rubs, systolic murmur - GI/Abdominal GI/Abdominal exam: Present: normal bowel sounds, soft, no peritoneal signs. Absent: distended, tenderness - Extremities Exam Extremities exam: Present: warm, radial pulses palpable and symmetrical. Absent : calf tenderness, cyanotic, pedal edema - Neurological Exam Neurological exam: Present: CN II-XII intact, oriented X3, no focal deficits. Absent: pronater drift, facial droop, speech deficit - Skin Skin exam: Present: dry, intact Internal Medicine: Result - Labs CBC & Chem 7: 07/24/17 04:42 07/24/17 04:42 Labs: Short CBC 07/24/17 Range/Units 04:42 WBC 8.0 (4.3-11.1) K/mcL Hgb 14.6 (12.9-16.9) g/dL Hct 44.9 (37.5-50.1) % Plt Count 272 (140-400) K/mcL Neutrophils # 4.8 (1.6-8.9) K/mcL BMP 07/24/17 04:42 Sodium 140 Potassium 3.5 Chloride 105 Carbon Dioxide 27 BUN 12 Creatinine 1.13 Glucose 114 H Calcium 9.4 - ABG Interpretation ABG results: PT/INR, D-dimer PT 10.7 Seconds (9.4-12.1) 07/23/17 05:16 Consult Discharge Plan - Plan Referrals: Chandan Abel MD [Primary Care Provider] -
[2017-07-25] MEDS: Colchicine 0.6 MG TABLET PO SCH (08:58)
[2017-07-25] MEDS: Indomethacin 25 MG CAPSULE PO SCH ×3 (08:58→17:08)
--- NOTE | 2017-07-25 11:11 | Cardiology Progress Note ---
Date of Encounter: 07/25/17 Time of Encounter: 11:11 Assessment and Plan (1) Chest pain Current Visit: Yes Status: Acute Hx of pericarditis in 2012. LHC at that time showed no CAD. EKG without ischemic changes. Troponin negative x 2. Chest pain worse when lying flat, not worsened on exertion. Mildly elevated ESR (CRP is normal). There are no definite criteria for pericarditis in this case. However, given symptoms of pleuritic chest pain and presence of mild elevation of ESR, Dr. Bah gave pt the option of treatment for pericarditis. Started colchicine and indomethacin yesterday evening. Pt reports since medication has been started he has been chest pain free. Still reports dyspnea on standing and reports his HR increases on standing. Telemetry reviewed--artifact, but highest HR noted 120s, SR. No arrhythmias noted. Echo 05/2017 EF preserved, moderate diastolic dysfunction. Given possibility of recurrent pericarditis, recommend continuing colchicine for 6 months, per treatment guidelines. Continue indomethacin 2-3 weeks and wean off. Recommend keeping follow-up appointment with Dr. Hickey scheduled for tomorrow. Cardiology signing off. Reconsult PRN. Okay to be d/c'd home from a cardiac standpoint. Qualifiers: Chest pain type: unspecified Qualified Code(s): R07.9 - Chest pain, unspecified (2) Diastolic dysfunction Current Visit: Yes Status: Chronic Echo 05/2017 moderate diastolic dysfunction. Pt admits to dyspnea, difficult to play with his children. Recent PFTs normal. Pt admits to excessive salt and fluid intake. Discussed and recommended Na and fluid restricted diet. CXR without acute findings and normal BNP. Chest CT negative for PE. Increased Chlorthalidone to 50mg daily. Recommend medication compliance and optimal BP control. Discussion w patient/family: The assessment and plan as outlined above was discussed with the patient and/or family members who expressed understanding and agreement. All questions were answered. Thank you for involving us in the care of your patient. Please call with any questions. I will discuss all the above with Dr. Bah and make changes as necessary. Subjective Principal diagnosis: Chest pain, diastolic dysfunction Interval history: Mildly elevated ESR (CRP is normal). There are no definite criteria for pericarditis in this case. However, given symptoms of pleuritic chest pain and presence of mild elevation of ESR, gave pt the option of treatment for pericarditis. Start colchicine and indomethacin yesterday evening. Pt reports since medication has been started he has been chest pain free. Still reports dyspnea on standing and reports his HR increases on standing. Telemetry reviewed --artifact, but highest HR noted 120s, SR. No arrhythmias noted. Objective Vital Signs, Last 4 Hours Temp Pulse Resp BP Pulse Ox 07/25/17 09:21 97.9 F 79 20 120/81 97 07/25/17 07:55 97.7 F 84 16 115/90 97 Vital Signs Temp Pulse Resp BP Pulse Ox 07/25/17 09:21 97.9 F 79 20 120/81 97 07/25/17 07:55 97.7 F 84 16 115/90 97 07/25/17 03:26 97.8 F 88 18 111/81 97 07/24/17 23:27 98.1 F 87 16 137/98 96 07/24/17 20:00 97.7 F 95 20 123/85 97 07/24/17 16:39 98.3 F 100 16 115/78 96 07/24/17 12:50 98.1 F 91 16 117/87 97 Intake and Output 07/24/17 07/25/17 07/25/17 23:59 07:59 15:59 Intake Total 0 / 0 Output Total 0 / 0 Balance 0 / 0 Intake: Oral 0 / 0 Output: Urine 0 / 0 Other: # Voids 1 Weight 95.4 kg 96.417 kg Patient Weight 07/25/17 23:59 Weight 96.417 kg General: Conversant, No Apparent Distress HEENT: Atraumatic, Normocephaly, Mucus Membranes Moist Neck: No JVD, Normal carotid pulses Cardiac: Reg Rate and Rhythm, Normal S1 and S2, No Murmur Lungs: Normal Breath Sounds, No Wheeze, Rales, Rhonchi Neuro: Alert and responsive, No focal deficits noted Abdomen: Soft, Non-Tender Skin: No rashes noted on visualized skin Musculoskeletal: No Chest Wall Tenderness Extremities: No Clubbing, No Cyanosis, No Edema, Normal Pulses Results 07/24/17 04:42 07/24/17 04:42 Active Medications Acetaminophen (Tylenol) 650 mg PO Q6HR PRN PRN Reason: Mild Pain/Fever Stop: 01/22/18 09:46 Last Admin: 07/24/17 15:48 Dose: 650 mg Buspirone HCl (Buspar) 10 mg PO BID [facility] Stop: 01/22/18 10:01 Last Admin: 07/25/17 08:58 Dose: 10 mg Chlorthalidone (Chlorthalidone) 50 mg PO DAILY [facility] Stop: 01/24/18 09:01 Last Admin: 07/25/17 08:58 Dose: 50 mg Colchicine (Colcrys) 0.6 mg PO BID [facility] Stop: 01/23/18 21:01 Last Admin: 07/25/17 08:58 Dose: 0.6 mg Hydroxyzine Pamoate (Hydroxyzine Pamoate) 25 mg PO HS PRN PRN Reason: Sleep Indomethacin (Indocin) 50 mg PO TIDWM CAROLE PRN Reason: Protocol Stop: 01/24/18 08:01 Last Admin: 07/25/17 08:58 Dose: 50 mg Naloxone HCl (Narcan) 0.4 mg IVP Q2MIN PRN PRN Reason: SEE COMMENTS Stop: 01/22/18 09:46 Nitroglycerin (Nitroglycerin) 0.4 mg SL Q5MIN PRN PRN Reason: Chest Pain Stop: 01/22/18 05:09 Last Admin: 07/23/17 05:27 Dose: 0.4 mg Oxycodone HCl (Oxycodone Oral Conc) 5 mg SL Q4H PRN; Protocol PRN Reason: mild to moderate pain Stop: 01/22/18 09:46 Last Admin: 07/24/17 20:35 Dose: 5 mg - EKG Interpretation EKG results cardiology: other (12 hr tele AVG HR 79, no significant pauses or arrhythmias) Consult Discharge Plan - Plan Referrals: Chandan Abel MD [Primary Care Provider] -
[2017-07-25] MEDS: Acetaminophen 325 MG TABLET PO PRN (12:46)
--- NOTE | 2017-07-25 15:56 | Discharge Summary ---
Date of Encounter: 07/25/17 Time of Encounter: 15:54 - Discharge Diagnosis (1) Chest pain Priority: Primary Status: Acute Qualifiers: Chest pain type: unspecified Qualified Code(s): R07.9 - Chest pain, unspecified (2) Dyspnea Priority: Secondary Status: Acute Qualifiers: Dyspnea type: dyspnea on exertion Qualified Code(s): R06.09 - Other forms of dyspnea (3) Diastolic dysfunction Priority: Secondary Status: Chronic (4) Elevated hemoglobin A1c Priority: Secondary Status: Acute (5) Microcytosis Priority: Secondary Status: Acute (6) Hypertension Priority: Secondary Status: Acute Qualifiers: Hypertension type: essential hypertension Qualified Code(s): I10 - Essential (primary) hypertension - Discharge Medications Prescriptions: Colchicine [Colcrys] 0.6 mg PO BID #60 tablet Indomethacin [Indocin] 50 mg PO TIDWM #42 capsule Home Medications: Buspirone HCl [Buspar] 10 mg PO BID 07/18/17 [History] Chlorthalidone 25 mg PO DAILY 07/18/17 [History] hydrOXYzine HCl [Hydroxyzine HCl] 25 mg PO HS PRN 07/18/17 [History] Colchicine [Colcrys] 0.6 mg PO BID #60 tablet 07/25/17 [Rx] Indomethacin [Indocin] 50 mg PO TIDWM #42 capsule 07/25/17 [Rx] Allergies/Adverse Reactions: 3 Allergy/AdvReac Type Severity Reaction Status Date / Time No Known Allergies Allergy Verified 07/18/17 09:02 Date of admission: 07/23/17 12:47 Primary care physician: Chandan Abel MD Discharging clinician: Deborah Teague - Patient Status Disposition: Home, Self-Care Condition: Good Functional capacity at discharge: independent ambulation Overall status at discharge: patient is back to baseline - Discharge Instructions Follow Up With: Chandan Abel MD [Primary Care Provider] - - Diet and Activity Activity: increase activity as tolerated Diet: advance to your usual diet Hospital course: Mr. Foy is a 36 year old male with past medical history of hypertension, pericarditis (2013) presented for acutely worsening chest pain. Initial onset was 3 days ago as patient was laying down. Described as partly pressure/heavy and partly sharp located in left side of chest. Pain feels similar to prior episode of pericarditis. No radiation of pain. Pain comes and goes and lasts for several minutes at a time with left arm tingling. He does have worsening BISHOP, diaphoresis, and night sweats as well. Denies fevers/chills, n/v, recent URI/illness, sick contacts. Family history of mother with unspecified heart failure diagnosed at age 48. He reports having a left heart catheter in 2013, unsure of results. Recent Echocardiogram done in 05/2017 showed LVEF of 60% with moderate diastolic dysfunction. He had recent office visit with Hematology /Oncology 07/18/17 for microcytosis of unknown etiology. So far workup has been negative and they referred him to Cardiology for concern for heart failure. He has office appointment with Cardiology tomorrow but since pain became acutely worsened he presented to ED. Patient admitted for ACS rule out and further rule out. Troponin were cycled and negative. CTA chest was negative for PE, BNP was within normal limits, ECG showed no ST/T wave changes. In the ED was given 1 mg/kg then, aspirin and 2 NTG. Cardiology consulted, likely this episode not related to ACS and possibly not pericarditis though he does have a history of pericarditis. Patient was open to starting indomethacin and colchicine and follow-up with Cardiology. He was discharged home in stable condition. - Time Spent with Patient Total time spent providing and/or coordinating discharge services: - Constitutional Vitals: Temp Pulse Resp BP Pulse Ox 98.5 F 78 20 123/83 98 07/25/17 11:53 07/25/17 11:53 07/25/17 11:53 07/25/17 11:53 07/25/17 11:53 - Head Head exam: Present: atraumatic, normocephalic - Eye Eye exam: Present: PERRL, conjuntiva pink, sclera anicteric Pupils: Present: PERRL - Neck Neck exam general surgery: Present: supple, trachea midline. Absent: lymphadenopathy - Respiratory Respiratory exam: Present: CTAB. Absent: accessory muscle use, rales, rhonchi, wheezes - Cardiovascular Cardiovascular exam: Present: RRR, +S1, +S2. Absent: diastolic murmur, gallop, rubs, systolic murmur - GI/Abdominal GI/Abdominal exam: Present: normal bowel sounds, soft, no peritoneal signs. Absent: distended, tenderness - Extremities Exam Extremities exam: Present: warm, radial pulses palpable and symmetrical. Absent : calf tenderness, cyanotic, pedal edema - Neurological Exam Neurological exam: Present: CN II-XII intact, oriented X3, no focal deficits. Absent: pronater drift, facial droop, speech deficit - Skin Skin exam: Present: dry, intact
[2017-07-25 16:31] VITALS: BP 117/74
[2017-07-25] MEDS ORDERED: 0.9 % Sodium Chloride 1,000 ML IVC SCH (18:15)
== END 2017-07-25 18:44 | disposition home or self-care (01) ==
LOC: EMEROO 04:44 → 2SOUTHHOLD 04:44 → 3BNU 07-25 09:15
PROVIDERS: ADMIT Family Medicine; ATTEND Registered Nurse

== ENCOUNTER 2017-08-01 02:16 | Observation (INO) ==
[2017-08-01] MEDS ORDERED: Aspirin 325 MG TABLET PO ONE (02:37)
[2017-08-01 02:45] LABS: Basophils % 0.6 %; Eosinophils # 0.1 K/mcL (0.0-0.6); Eosinophils % 1.9 %; Hematocrit 40.5 % (37.5-50.1); Hemoglobin 13.5 g/dL (12.9-16.9); Immature Granulocytes % 0.3 % (0-4); Lymphocytes # 2.3 K/mcL (0.6-4.6); Lymphocytes % 34.8 %; Mean Corpuscular HGB Conc 33.3 g/dL (31.6-35.5); Mean Corpuscular Hemoglobin 25.6 pg (28.0-33.3); Mean Corpuscular Volume 76.7 fL (83.0-100.0); Mean Platelet Volume 9.1 fL (9.4-12.4); Monocytes # 0.6 K/mcL (0.0-1.3); Monocytes % 8.9 %; Neutrophils # 3.6 K/mcL (1.6-8.9); Platelet Count 281 K/mcL (140-400); Red Blood Count 5.28 M/mcL (4.19-5.50); Red Cell Distribution Width 12.6 % (11.5-14.5); Segmented Neutrophils % 53.5 %
--- NOTE | 2017-08-01 02:45 | Emergency Department Note ---
Disposition Clinical Impression: Acute electrocardiogram changes Chest pain Qualifiers: Chest pain type: precordial pain Qualified Code(s): R07.2 - Precordial pain Disposition: Admitted As Inpatient Condition: Fair Chest Pain HPI - General Chief Complaint: ED Chest Pain Stated Complaint: chest pain Time Seen by Provider: 08/01/17 02:26 Source: patient, family, EMS Mode of arrival: EMS Limitations: no limitations Vital Signs Reviewed: Yes Nursing Notes Reviewed: Yes - History of Present Illness Pt complaint: chest pain Onset (ago): week(s) (2) Duration: intermittent Onset: during rest, during exertion, other (worse tonight) Pain Location: substernal Severity: moderate Severity scale (1-10): 7 Quality: sharp Pain Radiation: none Improves with: nitroglycerin (EMS gave SL NTG x 2 with "some relief") Worsens with: nothing Context: other (recently admitted for CP - had CTA (negative for PE), Echo (EF 60%) and serial enzymes (negative)) Associated symptoms: Reports: nausea, diaphoresis, cough (occasional, dry). Denies: vomiting, dyspnea, sense of impending doom, syncope, palpitations, fever , leg swelling Treatments prior to arrival chest pain: oxygen, other (NTG per EMS) - Related Data Home Medications Medication Instructions Recorded Confirmed Buspirone HCl [Buspar] 10 mg PO BID 07/18/17 08/01/17 Chlorthalidone 25 mg PO DAILY 07/18/17 08/01/17 hydrOXYzine HCl [Hydroxyzine HCl] 25 mg PO HS PRN 07/18/17 08/01/17 Previous Rx's Medication Instructions Recorded Colchicine [Colcrys] 0.6 mg PO BID #60 tablet 07/25/17 Indomethacin [Indocin] 50 mg PO TIDWM #42 capsule 07/25/17 Allergies Allergy/AdvReac Type Severity Reaction Status Date / Time No Known Allergies Allergy Verified 07/18/17 09:02 All systems ED: reviewed and negative except as stated. Review of Systems: As Per HPI Constitutional: Denies: fever, chills, weakness Eyes: Denies: eye pain, eye discharge, vision change ENT ED: Denies: ear pain, throat pain, congestion, dysphagia Cardiovascular: Reports: as per HPI, chest pain. Denies: palpitations, dyspnea on exertion, orthopnea, edema, syncope Respiratory: Reports: as per HPI, cough, dyspnea. Denies: wheezes, hemoptysis, stridor, sputum production Gastrointestinal: Reports: nausea. Denies: abdominal pain, vomiting, diarrhea, constipation Genitourinary: Denies: dysuria Musculoskeletal: Denies: back pain, neck pain, joint swelling Integumentary: Denies: rash Neurological: Denies: headache, weakness, numbness, paresthesias, confusion, abnormal gait, vertigo Endocrine: Reports: fatigue Hematological/Lymphatic: Denies: easy bleeding, easy bruising, lymphadenopathy Chest Pain PMH - Past Medical History Medical history: Reports: hypertension, other (pericarditis - 2014) Psychiatric history: Reports: anxiety Prior Cardiac Testing/Procedures: Cardiac Angiogram (2013 - normal) - Social History Smoking Status: Former smoker Alcohol use: Reports: none Drug use: Reports: none Physical Exam - General Limitations: no limitations General appearance: alert, in no apparent distress - Head Head exam: atraumatic, normocephalic, normal inspection - Eye Eye exam: Present: normal appearance, PERRL. Absent: scleral icterus, conjunctival injection, periorbital swelling - ENT ENT exam: mucous membranes moist - Neck Neck exam: Present: normal inspection, full ROM, trachea midline. Absent: tenderness, meningismus - Chest Chest inspection: Present: normal inspection, symmetric chest wall rise. Absent : tenderness - Respiratory Respiratory exam: Present: normal lung sounds bilaterally. Absent: respiratory distress, wheezes, stridor, accessory muscle use, prolonged expiratory phase - Cardiovascular Cardiovascular exam: Present: regular rate, normal rhythm, normal heart sounds. Absent: systolic murmur, diastolic murmur - Abdominal Exam Abdominal exam: Present: soft, Non-Tender. Absent: distention, guarding, rebound, rigidity, organomegaly, ascites, mass, pulsatile mass - Extremities Exam Extremities exam: Present: normal inspection, full ROM, normal capillary refill. Absent: tenderness, pedal edema, joint swelling, calf tenderness - Back Exam Back exam: Present: normal inspection - Neurological Exam Neurological exam: Present: alert, oriented X3, CN II-XII intact, normal gait - Psychiatric Psychiatric exam: Present: normal affect, normal mood - Skin Skin exam: Present: warm, dry, intact, normal color Course Course Narrative: Patient presents for evaluation of worsening chest pain. He states that he was recently discharged from here after being evaluated for chest pain for several days. He states that he underwent echocardiogram and numerous lab studies and was told that he may have pericarditis Again. He was started on NSAIDS and was discharged on Sunday. He states that he did not really feel much better and he has continued to feel fatigued. He has had no fever or chills, dizziness or syncope. He has had an occasional cough and feels short of breath. He had a CTA done when he was here and this was negative for PE. He did not have a stress test or heart Done. He states that this was probably because his heart cath in 2013 was normal. He was given two nitroglycerin per EMS, while in route to the hospital. He states that this did help a little with the pain. He declines additional medication at this time. Labs, x-rays and EKG have been ordered along with an aspirin. Patient's EKG shows a sinus rhythm with new T-wave inversions in the lateral leads of indeterminate age, as well as a left posterior fascicular block. These T-wave inversions are new compared to an EKG from July 23. Case has been discussed with Dr. Olivo. She has had [id number] time with the patient, has reviewed the EKG as well. She agrees with the assessment and plan to admit the patient. Vital Signs Temperature 98.5 F 08/01/17 02:18 Pulse Rate 83 08/01/17 02:18 Respiratory Rate 18 08/01/17 02:18 Blood Pressure 148/101 08/01/17 02:18 O2 Sat by Pulse Oximetry 98 08/01/17 02:18 Temperature 97.7 F 08/01/17 05:49 Pulse Rate 77 08/01/17 05:49 Respiratory Rate 15 08/01/17 05:49 Blood Pressure 102/69 08/01/17 05:49 O2 Sat by Pulse Oximetry 99 08/01/17 05:49 Oxygen Delivery Oxygen Delivery Room Air Chest Pain - Medical Records Medical records reviewed: Yes I reviewed the patient's medical records. - Lab Data Lab results reviewed: Yes I reviewed the patient's lab results. Result diagrams: 08/01/17 02:25 08/01/17 02:25 Lab Results 08/01/17 08/01/17 08/01/17 Range/Units 02:25 02:25 02:25 WBC 6.7 (4.3-11.1) K/mcL RBC 5.28 (4.19-5.50) M/mcL Hgb 13.5 (12.9-16.9) g/dL Hct 40.5 (37.5-50.1) % MCV 76.7 L (83.0-100.0) fL MCH 25.6 L (28.0-33.3) pg MCHC 33.3 (31.6-35.5) g/dL RDW 12.6 (11.5-14.5) % Plt Count 281 (140-400) K/mcL MPV 9.1 L (9.4-12.4) fL Immature Gran % 0.3 (0-4) % Seg Neutrophils % 53.5 % Lymphocytes % 34.8 % Monocytes % 8.9 % Eosinophils % 1.9 % Basophils % 0.6 % Neutrophils # 3.6 (1.6-8.9) K/mcL Lymphocytes # 2.3 (0.6-4.6) K/mcL Monocytes # 0.6 (0.0-1.3) K/mcL Eosinophils # 0.1 (0.0-0.6) K/mcL Basophils # 0.0 (0.0-0.2) K/mcL PT 11.4 (9.4-12.1) Seconds INR 1.1 APTT 29.0 (26.0-36.0) Seconds D-Dimer < 215 (0-500) ng/mLFEU Sodium 138 (136-145) mEq/L Potassium 3.3 L (3.5-5.1) mEq/L Chloride 104 (98-107) mEq/L Carbon Dioxide 25 (23-29) mEq/L BUN 20 (6-20) mg/dL Creatinine 1.09 (0.70-1.30) mg/dL Est GFR ( Amer) > 60 (> 60) Est GFR (Non-Af Amer) > 60 (> 60) BUN/Creatinine Ratio 18 (6-26) Glucose 147 H (70-105) mg/dL Calculated Osmolality 291 (280-300) Calcium 9.4 (8.6-10.3) mg/dL Troponin I (< 0.04) ng/mL B-Natriuretic Peptide (Less than 100) pg/mL 08/01/17 08/01/17 Range/Units 02:25 02:25 WBC (4.3-11.1) K/mcL RBC (4.19-5.50) M/mcL Hgb (12.9-16.9) g/dL Hct (37.5-50.1) % MCV (83.0-100.0) fL MCH (28.0-33.3) pg MCHC (31.6-35.5) g/dL RDW (11.5-14.5) % Plt Count (140-400) K/mcL MPV (9.4-12.4) fL Immature Gran % (0-4) % Seg Neutrophils % % Lymphocytes % % Monocytes % % Eosinophils % % Basophils % % Neutrophils # (1.6-8.9) K/mcL Lymphocytes # (0.6-4.6) K/mcL Monocytes # (0.0-1.3) K/mcL Eosinophils # (0.0-0.6) K/mcL Basophils # (0.0-0.2) K/mcL PT (9.4-12.1) Seconds INR APTT (26.0-36.0) Seconds D-Dimer (0-500) ng/mLFEU Sodium (136-145) mEq/L Potassium (3.5-5.1) mEq/L Chloride (98-107) mEq/L Carbon Dioxide (23-29) mEq/L BUN (6-20) mg/dL Creatinine (0.70-1.30) mg/dL Est GFR ( Amer) (> 60) Est GFR (Non-Af Amer) (> 60) BUN/Creatinine Ratio (6-26) Glucose (70-105) mg/dL Calculated Osmolality (280-300) Calcium (8.6-10.3) mg/dL Troponin I < 0.03 (< 0.04) ng/mL B-Natriuretic Peptide 4 (Less than 100) pg/mL - Radiology Data Radiology results reviewed: Yes I reviewed the patient's radiology results. Chest X-Ray 08/01/17 02:27 IMPRESSION: Negative portable chest. D/ / Farzad Arora MD / Farzad Arora MD Interpreting Provider: Farzad Arora MD - EKG Data EKG attestation: Yes I reviewed and interpreted this EKG. EKG shows normal: sinus rhythm Rate: normal Rhythm: NSR [place]/QRS: normal T wave inversions noted in: I, aVL, v6 When compared to previous EKG there are: changes noted Interpretation: nonspecific ST-T wave changes - Core Measures AMI Core Measures Followed: Yes Heart Score - Score History: Moderately Suspicious EKG: Non Specific repolarisation Disturbance Age: Less than 45 Risk Factors: 1-2 risk factors Troponin: 1-3x normal limit HEART Score Total: 4
[2017-08-01 02:50] LABS: INR 1.1; Prothrombin Time 11.4 Seconds (9.4-12.1)
--- NOTE | 2017-08-01 02:50 | Emergency Department Note ---
START Narrative - START START: For this encounter, I have reviewed the NEGATIVE CHECKER or PA documentation, treatment plan, and medical decision making; and I have had face to face time with this patient. 36 year old male wit HX of pericarditis presents to the ED with complaints of chest pain. WE will do cardiopulnonary workup.
[2017-08-01 02:53] LABS: BUN/Creatinine Ratio 18 (6-26); Blood Urea Nitrogen 20 mg/dL (6-20); Calcium 9.4 mg/dL (8.6-10.3); Carbon Dioxide 25 mEq/L (23-29); Chloride 104 mEq/L (98-107); Glucose 147 mg/dL (70-105); Osmolality,Calculated 291 (280-300); Potassium 3.3 mEq/L (3.5-5.1); Sodium 138 mEq/L (136-145); eGFR For African Americans > 60 (> 60); eGFR For Non-African Americans > 60 (> 60)
[2017-08-01 02:56] LABS: D-Dimer < 215 ng/mLFEU (0-500)
[2017-08-01] MEDS ORDERED: *HR* HYDROcodone/Acet 5/325 mg TABLET PO PRN (08:03)
[2017-08-01] MEDS ORDERED: Acetaminophen 325 MG TABLET PO PRN (08:03)
[2017-08-01] MEDS ORDERED: *HR* Promethazine 25 MG/ML VIAL IVP PRN (08:03)
[2017-08-01] MEDS ORDERED: Naloxone 0.4 MG/ML INJ IVP PRN (08:03)
[2017-08-01] MEDS ORDERED: Ondansetron 4 MG/2 ML VIAL IVP PRN (08:03)
[2017-08-01] MEDS ORDERED: hydrOXYzine pamoate 25 MG CAPSULE PO PRN (08:05)
[2017-08-01] MEDS ORDERED: Nitroglycerin 0.4 MG TAB.SUBL SL PRN (08:05)
--- NOTE | 2017-08-01 09:57 | Internal Med History&Physical ---
Date of Encounter: 08/01/17 Time of Encounter: 09:00 Assessment and Plan (1) Chest pain Current visit: Yes Status: Acute Will admit the pt into Tele for observation Will place pt on clinical research monitor check serial troponin so far negative troponin EKG reviewed by myself showed normal sinus rhythm, T wave inversion in lead 1 and AVL which seems to be new compared to previous EKG from last week will cont pt on ASA and Nitro PRN for chest pain reviewed his lipid panel from last visit which seems to be slightly elevated consulted cardiology for further evaluation since patient may need left heart catheterization because of his of the recurrent worsening chest pain Qualifiers: Chest pain type: precordial pain Qualified Code(s): R07.2 - Precordial pain (2) Pericarditis Current visit: Yes Status: Acute On clear etiology patient does not meet the full criteria for pericarditis patient was already on colchicine and indomethacin - however his chest pain seems to be not improved yet I would continue same medication for now consulted cardiology for further evaluation Reviewed previous labs - his hepatitis viral panel, HIV, , Chlamydia, Gonorrhea and TB were negative I would check auto immunological markers too..since pt's father had musuclar dystrophy check ELISA, rheumatoid factor, antiphospholipid antibody, CK total and CKMB His ESR and CRP were WNL on last admission Qualifiers: Chronicity: acute Qualified Code(s): I30.0 - Acute nonspecific idiopathic pericarditis (3) Iron deficiency Current visit: No Status: Acute Continue outpatient follow-up with Heme Onc (4) Elevated hemoglobin A1c Current visit: No Status: Acute Diet modification (5) Hypertension Current visit: No Status: Acute Stable and well-controlled with home medications Qualifiers: Hypertension type: essential hypertension Qualified Code(s): I10 - Essential (primary) hypertension (6) Diastolic dysfunction Current visit: No Status: Chronic Not in exacerbation Internal Medicine - H&P: HPI Chief complaint: Chest pain Admitted From: Emergency Dept Plans for Post Hospital Care: Home History of present illness: Mr. Foy is a 36 year old male with a known past medical history of hypertension, depression, recently diagnosed pericarditis who was recently discharged from our hospital on 07/25/2017 now he came back to the ER with worsening chest pain associated with some nausea and dizziness. Patient did mention that his chest pain never got improved since he left the hospital. His chest pain located at the left chest wall region non-radiative, sharp pain, 7 out of 10 in severity. Patient did follow-up with hem-oncologist for his pericarditis and he happened to have mild iron deficiency for which they suggest him to follow with pipeline technician for possible endoscopy. He also did follow-up with the theater usher Dr. Diaz as an outpatient, who suggested him if in case if he kept on having persistent chest pain he may need left heart catheterization also need to go to [facility] for possible MRI of the heart. Patient stated now he is feeling little better however still have some chest pain. Past Med Surg Social Fam HX - Past Medical History Medical history: hypertension, other (pericarditis - 2014) Psychiatric history: anxiety - Social History Smoking Status: Former smoker Smokeless Tobacco Status: No Alcohol use: none Drug use: none - Family History Mother Living Status: Hx Family Cardiac Disorders: Yes (CHF) Hx Family Endocrine Disorder: Yes (DM) Father Hx Family Cardiac Disorders: Yes Hx Family Musculoskeletal Disorders: Yes (muscular dystrophy) Internal Medicine - H&P: Meds Buspirone HCl [Buspar] 10 mg PO BID 07/18/17 [History] Chlorthalidone 12.5 mg PO DAILY 07/18/17 [History] hydrOXYzine HCl [Hydroxyzine HCl] 25 mg PO HS PRN 07/18/17 [History] Colchicine [Colcrys] 0.6 mg PO BID #60 tablet 07/25/17 [Rx] Indomethacin [Indocin] 50 mg PO TIDWM #42 capsule 07/25/17 [Rx] 3 Allergy/AdvReac Type Severity Reaction Status Date / Time No Known Allergies Allergy Verified 07/18/17 09:02 All Systems PM: A 10-system review of systems was performed and is negative for pertinent findings except as documented above in the HPI. Review of systems: All the systems are reviewed everything is benign except the systems and symptoms I mentioned in the history of present illness - Constitutional Vitals: Temp Pulse Resp BP Pulse Ox 98.0 F 85 16 121/75 99 08/01/17 07:20 08/01/17 07:20 08/01/17 07:20 08/01/17 07:20 08/01/17 07:20 General appearance: Present: cooperative, A&O X 3, answers questions appropriately Exam: Looks slightly depressed - Head Head exam: Present: atraumatic, normocephalic - Neck Neck exam general surgery: Present: full ROM, supple. Absent: lymphadenopathy, tenderness - Respiratory Respiratory exam: Present: decreased breath sounds. Absent: chest wall tenderness, rales, respiratory distress, rhonchi, wheezes - Cardiovascular Cardiovascular exam: Present: RRR, +S1, +S2. Absent: bradycardia, distant heart sounds, gallop, systolic murmur, tachycardia - GI/Abdominal GI/Abdominal exam: Present: soft. Absent: distended, rebound, rigid, tenderness - Extremities Exam Extremities exam: Absent: calf tenderness, pedal edema, tenderness - Back Exam Back exam: Absent: CVA tenderness (L), CVA tenderness (R) - Neurological Exam Neurological exam: Present: alert, oriented X3 - Psychiatric Psychiatric exam: Present: depressed - Skin Skin exam: Absent: rash Internal Med - H&P Results - Labs CBC & Chem 7: 08/01/17 02:25 08/01/17 02:25
[2017-08-01] MEDS: Colchicine 0.6 MG TABLET PO SCH ×2 (10:01→20:44)
[2017-08-01] MEDS: Aspirin 81 MG TAB.CHEW PO SCH (10:01)
--- NOTE | 2017-08-01 11:39 | Cardiology Consult Note ---
<Raúl Wu R - Last Filed: 08/01/17 11:32> Date of Encounter: 08/01/17 Time of Encounter: 11:32 Assessment and Plan (1) Chest pain Current Visit: Yes Status: Acute Continued recurrent chest pain episodes. Recently treated for pericarditis, but symptoms continue. EKG changes noted--T wave inversions leads I and aVL. Continued exertional dyspnea that is life limiting. Symptoms concerning for unstable angina. As outpt, cardiac MRI has been ordered, not yet completed. Also concern for muscular dystrophy and has outpt appointment with neurology. Echo 05/2017 EF preserved. Recheck echo. Recommend [facility] to further evaluate given persistent symptoms/admissions and EKG changes. R/B/A discussed. Pt agrees to proceed with [facility] today. Qualifiers: Chest pain type: unspecified Qualified Code(s): R07.2 - Precordial pain (2) Pericarditis Current Visit: Yes Status: Acute Began treatment for recurrent pericarditis 07/24/17. Continue Colchicine and Indomethacin. Outpt cardiac MRI ordered. Symptoms persisting, LHC as above. Qualifiers: Chronicity: acute Qualified Code(s): I30.0 - Acute nonspecific idiopathic pericarditis (3) Diastolic dysfunction Current Visit: No Status: Chronic Moderate diastolic dysfunction on TTE 05/2017. Admits to excess fluid and Na intake. No acute exacerbation on exam, but reports continued exertional dyspnea. (4) Hypokalemia Current Visit: Yes Status: Acute K 3.3. Will replace. Discussion w patient/family: The assessment and plan as outlined above was discussed with the patient and/or family members who expressed understanding and agreement. All questions were answered. Thank you for involving us in the care of your patient. Please call with any questions. I will discuss all the above with Dr. Bah and make changes as necessary. History of Present Illness Consult date: 08/01/17 Requesting physician: Wayne Beckett Consult reason: chest pain Chief complaint: chest pain History of present illness: Mr. Foy is a 36 year old male with past medical history of hypertension, pericarditis (2012) with normal LHC at that time that presented for worsening chest pain. He was recently seen by cardiology as inpt 07/24/17 for chest pain and was treated for recurrent pericarditis. He followed up with Dr. Hickey , cardiac MRI was ordered for further evaluation and it was documented that if he had recurrent chest pain, consider C. Pt reports he initially was feeling better after discharge, but continued to have mild intermittent chest pain. He woke up last night and had worsening chest pain, left side, sharp and pressure. It was associated with diaphoresis and dizziness. Reports BP was 171/ 140 at home. Chest pain continues to me intermittent, mild discomfort currently. Troponin negative x 2. EKG does show changes compared to prior shows newly inverted T waves in I and aVL. Continues to report exertional dyspnea. Prior CV testing: TTE 06/08/17:LVEF 60%. Moderate left ventricular diastolic dysfunction. Normal right ventricular structure and function. No significant valvular dysfunction. No pulmonary hypertension. Past Med Surg Social Fam HX - Past Medical History Medical history: hypertension, other (pericarditis - 2014) Psychiatric history: anxiety - Social History Smoking Status: Former smoker Smokeless Tobacco Status: No Alcohol use: none Drug use: none - Family History Mother Living Status: Hx Family Cardiac Disorders: Yes (CHF) Hx Family Endocrine Disorder: Yes (DM) Father Hx Family Cardiac Disorders: Yes Hx Family Musculoskeletal Disorders: Yes (muscular dystrophy) Medications and Allergies Buspirone HCl [Buspar] 10 mg PO BID 07/18/17 [History] Chlorthalidone 12.5 mg PO DAILY 07/18/17 [History] hydrOXYzine HCl [Hydroxyzine HCl] 25 mg PO HS PRN 07/18/17 [History] Colchicine [Colcrys] 0.6 mg PO BID #60 tablet 07/25/17 [Rx] Indomethacin [Indocin] 50 mg PO TIDWM #42 capsule 07/25/17 [Rx] 3 Allergy/AdvReac Type Severity Reaction Status Date / Time No Known Allergies Allergy Verified 07/18/17 09:02 All Systems Review: The remainder of the systems were reviewed and are negative - Cardiovascular Cardiovascular: as per HPI, chest pain at rest, chest pain with exertion, diaphoresis, dyspnea on exertion, lightheadedness - Respiratory Respiratory: dyspnea Physical Examination Vital Signs, Last 4 Hours Temp Pulse Resp BP Pulse Ox 08/01/17 10:12 98.1 F 93 16 111/72 99 Vital Signs Temp Pulse Resp BP Pulse Ox 08/01/17 10:12 98.1 F 93 16 111/72 99 08/01/17 07:20 98.0 F 85 16 121/75 99 08/01/17 05:49 97.7 F 77 15 102/69 99 08/01/17 03:33 97.7 F 85 18 130/82 98 08/01/17 02:54 92 18 130/92 98 08/01/17 02:18 98.5 F 83 18 148/101 98 Intake and Output 07/31/17 08/01/17 08/01/17 23:59 07:59 15:59 Intake Total 360 / 360 Balance 360 / 360 Intake: Oral 360 / 360 Other: Meal Breakfast Percent of Meal Consumed 100% Weight 95.481 kg Patient Weight 08/01/17 23:59 Weight 95.481 kg General: Conversant, No Apparent Distress HEENT: Atraumatic, Normocephaly, Mucus Membranes Moist Neck: No JVD, Normal carotid pulses Cardiac: Reg Rate and Rhythm, Normal S1 and S2, No Murmur Lungs: Normal Breath Sounds, No Wheeze, Rales, Rhonchi Neuro: Alert and responsive, No focal deficits noted Abdomen: Soft, Non-Tender Skin: No rashes noted on visualized skin Musculoskeletal: No Chest Wall Tenderness Extremities: No Clubbing, No Cyanosis, No Edema, Normal Pulses Results 08/01/17 02:25 08/01/17 02:25 Lab Results 08/01/17 09:23 Troponin I < 0.03 Short CBC 08/01/17 Range/Units 02:25 WBC 6.7 (4.3-11.1) K/mcL Hgb 13.5 (12.9-16.9) g/dL Hct 40.5 (37.5-50.1) % Plt Count 281 (140-400) K/mcL Neutrophils # 3.6 (1.6-8.9) K/mcL BMP 08/01/17 Range/Units 02:25 Sodium 138 (136-145) mEq/L Potassium 3.3 L (3.5-5.1) mEq/L Chloride 104 (98-107) mEq/L Carbon Dioxide 25 (23-29) mEq/L BUN 20 (6-20) mg/dL Creatinine 1.09 (0.70-1.30) mg/dL Glucose 147 H (70-105) mg/dL Calcium 9.4 (8.6-10.3) mg/dL Cardiac Enzymes 08/01/17 08/01/17 Range/Units 09:23 02:25 Troponin I < 0.03 < 0.03 (< 0.04) ng/mL Impressions Chest X-Ray 08/01/17 02:27 IMPRESSION: Negative portable chest. D/ / Farzad Arora MD / Farzad Arora MD Interpreting Provider: Farzad Arora MD Active Medications Acetaminophen (Tylenol) 650 mg PO Q6HR PRN PRN Reason: Mild Pain/Fever Stop: 01/31/18 08:04 Hydrocodone Bitart/Acetaminophen ([place] 5-325 Mg) 1 tab PO Q6HR PRN PRN Reason: Moderate Pain Stop: 01/31/18 08:04 Aspirin (Aspirin) 81 mg PO DAILY [facility] Stop: 01/31/18 09:01 Last Admin: 08/01/17 10:01 Dose: 81 mg Buspirone HCl (Buspar) 10 mg PO BID [facility] Stop: 01/31/18 09:01 Last Admin: 08/01/17 10:01 Dose: 10 mg Colchicine (Colcrys) 0.6 mg PO BID [facility] Stop: 01/31/18 09:01 Last Admin: 08/01/17 10:01 Dose: 0.6 mg Docusate Sodium (Colace) 100 mg PO BID PRN PRN Reason: Constipation Stop: 01/31/18 09:01 Hydroxyzine Pamoate (Hydroxyzine Pamoate) 25 mg PO HS PRN PRN Reason: Sleep Indomethacin (Indocin) 50 mg PO TIDWM [facility] PRN Reason: Protocol Stop: 01/31/18 12:01 Naloxone HCl (Narcan) 0.4 mg IVP Q2MIN PRN PRN Reason: SEE COMMENTS Stop: 01/31/18 08:04 Nitroglycerin (Nitroglycerin) 0.4 mg SL Q5MIN PRN PRN Reason: Chest Pain Stop: 01/31/18 08:06 Ondansetron HCl (Zofran) 4 mg IVP Q8HR PRN PRN Reason: Nausea And Vomiting Stop: 01/31/18 08:04 Promethazine HCl (Phenergan) 12.5 mg IVP Q6HR PRN PRN Reason: Nausea And Vomiting Stop: 01/31/18 08:04 - Imaging and Cardiology Echo: report reviewed - EKG Interpretation EKG results cardiology: personally reviewed (T wave inversion lead I and aVL), other (12 hr tele AVG HR 87, SR, no signficant pauses or arrhythmias) Consult Discharge Plan - Plan Referrals: Chandan Abel MD [Primary Care Provider] - <Yanira Bah - Last Filed: 08/01/17 13:57> Date of Encounter: 08/01/17 - Attending Attestation I examined this patient and my medical decision-making was reviewed with the LIBRARY CIRCULATION TECHNICIAN. I agree with the documented findings, disposition and treatment plan as described. Mr. Foy is readmitted with chest pain. He was recently admitted for similar symptoms and has a history of pericarditis. He was treated empirically with indomethacin and colchicine. He says symptoms initially improved but then returned. He was seen in the outpatient setting and has a cardiac MRI pending. Workup for muscular dystrophy is underway - family history in father. Upon presenting, ECG noted to have new changes in lead I and aVL. Troponins negative. Given multiple ongoing chest symptoms and rehospitalization, we have offered him a C. The R/B/A of the procedure were discussed with the patient who expressed understanding and verbalized agreement to proceed. Assessment and Plan Discussion w patient/family: The assessment and plan as outlined above was discussed with the patient and/or family members who expressed understanding and agreement. All questions were answered. Thank you for involving us in the care of your patient. Please call with any questions. History of Present Illness History of present illness: Mr. Foy is a 36 year old male All Systems Review: The remainder of the systems were reviewed and are negative Physical Examination Vital Signs, Last 4 Hours Temp Pulse Resp BP Pulse Ox 08/01/17 10:12 98.1 F 93 16 111/72 99 Results 08/01/17 02:25 08/01/17 02:25 Lab Results 08/01/17 09:23 Troponin I < 0.03
[2017-08-01] MEDS ORDERED: 0.9 % Sodium Chloride 1,000 ML ONE ×2 (12:04→13:16)
[2017-08-01] MEDS ORDERED: Heparin 1,000 UNITS/500 mL 500 ML ONE (12:05)
[2017-08-01] MEDS ORDERED: ISOVUE-370 200 ML INFUS..BTL IV ONE (12:05)
[2017-08-01] MEDS ORDERED: *HR* Heparin 10,000 UNIT/10 ML VIAL ONE (12:05)
[2017-08-01] MEDS ORDERED: Nitroglycerin 1,000 MCG/10 ML VIAL IV ONE (12:05)
[2017-08-01] MEDS ORDERED: *HR* Midazolam HCl 2 MG/2 ML VIAL ONE ×2 (13:53→14:10)
--- NOTE | 2017-08-01 14:04 | Pre-Sedation Evaluation ---
Pre-sedation evaluation - Pre-sedation checklist Date of procedure: 08/01/17 Recent Vitals: Last Vital Signs Temp 98.1 F 08/01/17 10:12 Pulse 93 08/01/17 10:12 Resp 16 08/01/17 10:12 BP 111/72 08/01/17 10:12 Pulse Ox 99 08/01/17 10:12 H&P (including ROS) documented in medical record: Yes Previous reaction to sedatives/anesthetics: No Dietary Status: NPO after Midnight Airway Assessment: Patient can open mouth completely, TMJ function normal Dentition: No loose teeth or bridges If Yes;: History of difficult intubation ASA Classification *see protocol: CLASS III-Severe systemic disease Plan of Care: Pt appropriate candidate for procedure/moderate/conscious sedation , Risks/benefits of procedure/sedation discussed w/ patient/family, If not NPO; Risk of intake outweiged by necessity to perform procedure
--- NOTE | 2017-08-01 14:38 | Invasive Diagnostic Lab Proc ---
Name: Ricardo Foy Date of Study: 08/01/2017 Date: 1980 Ht: 70.1in Medical Record#: [id number] Age: 36 Wt: 209.44lb Gender: Male BSA: 2.13 Order #: [id number] BMI: 29.98 Physicians Procedure Physician: Hammad Castañeda DO Referring MD: Referring MD: Staff Name Position Time In Lynne Rodríguez RN Monitor 01:13 PM Guillermina Shelby RN Patternmaker Helper 01:13 PM Tricia Orozco RT (R) Scrub 01:13 PM Indications Indication Unstable Angina Procedures Performed Procedure L HRT ARTERY/VENTRICLE ANGIO Pre-Procedure Checklist Informed consent is complete signed and on chart. H&P is on chart. ID band is on and ID verified with patient. Patient NPO for procedure The procedure was described for the patient and questions were answered. Blood Pressure: 138/86 ECG is on chart. Rhythm: NSR Plan of Care Patient will tolerate the procedure without complications. Adequate level of comfort will be maintained. Hemodynamics will remain stable Patient will recover from procedure without complications. Respiratory function will be maintained. Cardiac rhythm will remain stable. Patient temperature will be maintained. Patient and/or family have verbalized understanding of the procedure. Patient Education Chief Complaint/Reason for Test: Cardiac Cath Developmental Category: Adult (18-64 years) Developmentally Appropriate for Age: Yes Learning Barriers: None Education Needs: Procedure Education Method: Verbal Information Taught: Cardiac Cath Educational Evaluation: Able to repeat information Intravenous Access Time IV Size Location DC'd Fluid/Drip Rate Units RN 01:20 PM 20g 1 1/" Patent On Arrival Lt Arm 0.9NaCl 25 ml/hr Lynne Rodríguez RN Allergies No Known Allergies NKA Vital Signs Time BP (mmHg) HR (bpm) O2 Sat. RR (bpm) LOC 111 / 72 93 99 % 16 5 = Fully awake and oriented or at pre-proc level 01:11 PM / % 5 = Fully awake and oriented or at pre-proc level 01:11 PM / % 4 = Oriented but drowsy 01:28 PM / % 4 = Oriented but drowsy 01:44 PM / % 5 = Fully awake and oriented or at pre-proc level 01:53 PM / % 4 = Oriented but drowsy 01:55 PM 138 / 86 71 99 % 8 02:00 PM 136 / 84 83 100 % 12 02:05 PM 123 / 80 84 100 % 24 02:10 PM 126 / 76 90 100 % 18 02:15 PM 129 / 76 71 100 % 13 Procedural Medications Time Medication Dose Units Method Given By 01:54 PM Oxygen 2 L/min nasal cannula Guillermina Shelby RN 01:58 PM Versed 2 mg Intravenous Guillermina Shelby RN 02:12 PM Lidocaine 2% 10 ml Subcutaneous Hammad Castañeda DO ASA Classification: CLASS III- Severe systemic disease (i.e. prior AMI, diabetes with vascular complications, morbid obesity) Melissa Score Preprocedure Postprocedure Activity 2- Moves 4 extremities sustained head lift Activity Circulation 2- SBP +/= 20 points of pre-anesthetic level Circulation Consciousness 2- Awake and alert oriented x 3 Consciousness O2 Saturation 2- Able to maintain O2 satruation of 92% on room air O2 Saturation Respiratory 2- Able to deep breathe and cough well Respiratory Total Score 10 Total Score Contrast Agent: Isovue Diagnostic Contrast: 30 ml Total Contrast: 30 ml Fluoro Dose: 149 mGy Procedure Log Time Note Enter By 12:09 PM CathStat 01:11 PM Pt arrived to sleep lab technologist 2 at 13:11 scoates 01:11 PM Time: 13:11 Patient comfortable and pain free: Yes scoates 01:11 PM Time: 13:11LOC: 5 = Fully awake and oriented or at pre-proc level scoates 01:12 PM Physican paged/called 13:12. scoates 01:12 PM Case Delayed No, inpatient scoates 01:12 PM Patient charges- Angio tray pack, Navilyst 3mm J, Pulse Oximetry and ACIST tubing and transducer scoates 01:13 PM Lynne Rodríguez RN Position: Monitor Time in: 13:13 scoates 01:13 PM Guillermina Shelby RN Position: Patternmaker Helper Time in: 13:13 scoates 01:14 PM Tricia Orozco RT (R) Position: Scrub Time in: 13:13 scoates 01:14 PM Clinical Presentation: Unstable angina scoates 01:28 PM Time: 13:11LOC: 4 = Oriented but drowsy scoates 01:29 PM Time: 13:11 Patient comfortable and pain free: Yes scoates 01:44 PM Time: 13:28LOC: 4 = Oriented but drowsy scoates 01:44 PM Time: 13:29 Patient comfortable and pain free: Yes scoates 01:51 PM Physician arrived 13:51 scoates 01:51 PM Meet and greet completed scoates 01:51 PM Sign in performed according to hospital policy. scoates 01:52 PM Procedure start 13:51 scoates 01:52 PM Case Delayed No scoates 01:52 PM Time: 13:44 Patient comfortable and pain free: Yes scoates 01:53 PM Time: 13:44LOC: 5 = Fully awake and oriented or at pre-proc level scoates 01:54 PM Recorded ECG: HR=95 Condition=Condition 1 01:54 PM Vitals capture started with the following parameters, Patient=Adult, Interval=5 min, Initial Rnqozdbw=481 mmHg, Deflation Rate=5 mmHg, Cuff placed on Right Arm 01:54 PM Time: 13:54 Oxygen on at 2 L/min per nasal cannula by Guillermina Shelby RN scoates 01:55 PM HR=71 bpm, KNAZ=780/86 mmhg, SpO2=99.0 %, Resp=8 B/min, Comment=nsr 01:55 PM Hair removed from procedure site in holding area using clippers. Bilateral groin prepped with Chloraprep by Pia Gonzalez), then patient was draped. Skin intact. scoates 01:58 PM Time: 13:58 Versed 2 mg Intravenous Given by Guillermina Shelby RN scoates 02:00 PM HR=83 bpm, UKZC=951/84 mmhg, NhH4=030.0 %, Resp=12 B/min, Comment=nsr 02:02 PM Pressure channel 2 zeroed. 02:05 PM HR=84 bpm, UEAE=012/80 mmhg, McQ2=387.0 %, Resp=24 B/min, Comment=nsr 02:08 PM Time: 13:53LOC: 4 = Oriented but drowsy scoates 02:08 PM Time: 13:52 Patient comfortable and pain free: Yes scoates 02:09 PM ASA Class CLASS III- Severe systemic disease (i.e. prior AMI, diabetes with vascular complications, morbid obesity) scoates 02:10 PM HR=90 bpm, KLIK=855/76 mmhg, UfN7=606.0 %, Resp=18 B/min, Comment=nsr 02:12 PM Time out performed according to hospital policy scoates 02:12 PM Time: 14:12 10 ml Lidocaine 2% to right groin Subcutaneous Given by Hammad Castañeda DO scoates 02:14 PM Access obtained by percutaneous puncture. 6Fr 11cm [place] sheath placed in right Femoral artery. [id number] scoates 02:15 PM HR=71 bpm, ZLMI=632/76 mmhg, CsJ3=162.0 %, Resp=13 B/min, Comment=nsr 02:16 PM 5Fr FR 4 catheter inserted over the wire DN scoates 02:16 PM Catheter selectively placed in left ventricle scoates 02:16 PM Bolus angiogram of left Ventricle complete: hand injected for a total of 10 mls scoates 02:16 PM RCA angiography performed in multiple views. scoates 02:16 PM Catheter removed scoates 02:16 PM Coronary Dominance: right scoates 02:16 PM 5Fr FL 4 catheter inserted over the wire DNC scoates 02:17 PM Recorded Pressure: Ao, HR=82, Condition=Condition 1 (Aorta) Ao 110/72/91 02:17 PM LCA angiography performed in multiple views. scoates 02:17 PM Recorded Pressure: Ao, HR=85, Condition=Condition 1 (Aorta) Ao 107/69/87 02:18 PM Bolus angiogram of right Femoral complete: hand injected for a total of 5 mls scoates 02:19 PM Catheter removed scoates 02:19 PM Procedure completed at 14:19 scoates 02:19 PM Did you address SLOAN flow and Dominance? Yes scoates 02:19 PM Isovue 370 - 200ml,1 Bottle(s) used. scoates 02:22 PM Sign out completed: Radiation Dose 149 mGy Fluoro Time: 0.8 Isovue 370 - 200ml contrast 30 ml given by Hammad Castañeda DO. Complications: NoneCardiac Rehab Consult needed: NoConfirmed administered medications: Yes scoates 02:23 PM Arterial sheath pulled, Angio-seal closure device used and was Successful [id number] S/N. scoates 02:23 PM Estimated Blood Loss: minimal scoates 02:23 PM Post ECG NSR scoates 02:23 PM Post Blood Pressure 117/89 scoates 02:23 PM 14:23 Post Pulses Bilateral DP & PT 1+ scoates 02:23 PM Information taught Cardiac Cath and Angioseal scoates 02:23 PM Education needs Procedure, Plan of Care, and Responsibilities of Patient in Care scoates 02:23 PM Learning barriers :None scoates 02:24 PM Education Methods Verbal scoates 02:24 PM Education evaluation Able to repeat information scoates 02:24 PM Site status No bleeding/hematoma - Rt Groin as reported by Tricia Orozco RT (R) at 14:24 scoates 02:24 PM Opsite applied scoates 02:24 PM Opsite applied scoates 02:24 PM Plavix, Effient or Brilinta given No scoates 02:24 PM Delay to floor No scoates 02:27 PM Patient out of room: 14:27 scoates 02:28 PM Family placed in consult room. scoates 02:28 PM Complications: None scoates 02:28 PM Fluoro Time: 0.8 scoates 02:28 PM Radiation Dose 149 mGy scoates 02:28 PM Isovue 370 - 200ml contrast 30 ml given by DO. mario alberto Martin Complications Complication None None Hemodynamics Pressures Site Systolic/A Wave Diastolic/V Wave Mean AO 110 72 91 AO 107 69 87 Post Procedure Information Blood Pressure: 117/89 mmHg Rhythm: NSR Post procedural instructions were given Site Checks Time Location Status Staff Sheath In? Note 02:24 PM Rt Groin No bleeding/hematoma Tricia Orozco RT (R) Pulses Time Site Pre-Procedure Post-Procedure Note 08/01/2017 1:20:00 PM Bilateral DP & PT 1+ 08/01/2017 1:20:00 PM Bilateral radial 2+ 2:23:00 PM Bilateral DP & PT 1+ Updated by Lynne Covarrubias RN on 08/01/2017 2:30:15 PM electronically signed on 08/01/2017 2:30:34 PM with status of Final
[2017-08-01] MEDS: Indomethacin 25 MG CAPSULE PO SCH ×2 (14:53→18:07)
[2017-08-01] MEDS: 0.9 % Sodium Chloride 1,000 ML IVC SCH ×2 (14:54→23:06)
--- NOTE | 2017-08-01 15:13 | Event Note ---
Date of Encounter: 08/01/17 Time of Encounter: 15:09 - Cardiology Event Note LHC showed normal coronary arteries. EF 60%. Outpt cardiac MRI as already ordered. Continue current pericarditis treatment. Follow-up as outpt in 3-4 weeks. Will coordinate. Cardiology signing off. Reconsult PRN.
[2017-08-01 16:51] LABS: C-Reactive Protein < 5 mg/L (Less than 10); Creatine Kinase 93 Units/L (30-223)
[2017-08-02 05:41] LABS: BUN/Creatinine Ratio 14 (6-26); Blood Urea Nitrogen 14 mg/dL (6-20); Calcium 8.6 mg/dL (8.6-10.3); Carbon Dioxide 26 mEq/L (23-29); Chloride 110 mEq/L (98-107); Chol/HDL Ratio 5.6 (0-4.9); Cholesterol 117 mg/dL (< 200); Glucose 103 mg/dL (70-105); HDL Cholesterol 21 mg/dL (40-59); LDL Cholesterol,Calculated 75 mg/dL (0-99); Osmolality,Calculated 293 (280-300); Potassium 3.6 mEq/L (3.5-5.1); Sodium 141 mEq/L (136-145); Triglycerides 106 mg/dL (< 150); eGFR For African Americans > 60 (> 60); eGFR For Non-African Americans > 60 (> 60)
[2017-08-02] MEDS: Colchicine 0.6 MG TABLET PO SCH (08:14)
[2017-08-02] MEDS: Aspirin 81 MG TAB.CHEW PO SCH (08:14)
[2017-08-02] MEDS: Indomethacin 25 MG CAPSULE PO SCH (08:16)
--- NOTE | 2017-08-02 11:00 | Discharge Summary ---
Orders not resulted at time of discharge: Pending orders 08/01/17 16:09 ELISA IgG AP rflx IFA Routine Antiphospholipid Ab High Spec Routine Creatine Kinase MB Routine Date of Encounter: 08/02/17 Time of Encounter: 10:54 - Discharge Diagnosis (1) Chest pain Priority: Primary Status: Acute Comments: presented with recurrent chest pain episodes. Recently treated for pericarditis , but symptoms continue. EKG changes noted--T wave inversions leads I and aVL. LHC showed normal coronary arteries. EF 60%. Suspect chest pain secondary to pericarditis. Evaluated by cardiology who noted no further cardiac workup indicated at this time. Follow-up with cardiology outpatient in 3-4 weeks. Qualifiers: Chest pain type: unspecified Qualified Code(s): R07.2 - Precordial pain (2) Pericarditis Priority: Primary Status: Acute Comments: began treatment for recurrent pericarditis 07/24/17. Appears idiopathic. Repeat TTE with EF 60%, no pericardial effusion. Continue Colchicine and Indomethacin. Outpt cardiac MRI ordered per Cardiology Qualifiers: Pericarditis type: idiopathic Chronicity: acute Qualified Code(s): I30.0 - Acute nonspecific idiopathic pericarditis (3) Hypertension Priority: Secondary Status: Acute Comments: per hx. BP controlled. Cont home BP medications Qualifiers: Hypertension type: essential hypertension Qualified Code(s): I10 - Essential (primary) hypertension Hospital course: See assessment and plan for hospital course Discharge discussed with: patient - Time Spent with Patient Total time spent providing and/or coordinating discharge services: Less than 30 minutes - Discharge Medications Home Medications: Buspirone HCl [Buspar] 10 mg PO BID 07/18/17 [History] Chlorthalidone 12.5 mg PO DAILY 07/18/17 [History] hydrOXYzine HCl [Hydroxyzine HCl] 25 mg PO HS PRN 07/18/17 [History] Colchicine [Colcrys] 0.6 mg PO BID #60 tablet 07/25/17 [Rx] Indomethacin [Indocin] 50 mg PO TIDWM #42 capsule 07/25/17 [Rx] Allergies/Adverse Reactions: 3 Allergy/AdvReac Type Severity Reaction Status Date / Time No Known Allergies Allergy Verified 07/18/17 09:02 Date of admission: 08/01/17 05:21 Primary care physician: Chandan Abel MD Consults: 08/01/17 09:13 Consult to Cardiology [CONS] Routine Comment: Consulting Provider: Cardiology Sonali Reason for Consult: Acute chest pain .. New [facility] Call Completed: Yes Discharging clinician: Brooke Galvan Anticipated date of discharge: 08/02/17 - Constitutional Vitals: Temp Pulse Resp BP Pulse Ox 97.6 F 86 16 119/80 98 08/02/17 07:38 08/02/17 07:38 08/02/17 07:38 08/02/17 07:38 08/02/17 07:38 General appearance: Present: cooperative, A&O X 3, answers questions appropriately - Head Head exam: Present: atraumatic, normocephalic - Eye Eye exam: Present: PERRL, conjuntiva pink, sclera anicteric Pupils: Present: PERRL - Neck Neck exam general surgery: Present: supple, trachea midline. Absent: lymphadenopathy - Respiratory Respiratory exam: Present: CTAB. Absent: accessory muscle use, rales, rhonchi, wheezes - Cardiovascular Cardiovascular exam: Present: RRR, +S1, +S2. Absent: diastolic murmur, gallop, rubs, systolic murmur - GI/Abdominal GI/Abdominal exam: Present: normal bowel sounds, soft, no peritoneal signs. Absent: distended, tenderness - Extremities Exam Extremities exam: Present: warm, radial pulses palpable and symmetrical. Absent : calf tenderness, cyanotic, pedal edema - Neurological Exam Neurological exam: Present: CN II-XII intact, oriented X3, no focal deficits. Absent: pronater drift, facial droop, speech deficit - Skin Skin exam: Present: dry, intact - Patient Status Disposition: Home, Self-Care Condition: Good Functional capacity at discharge: independent ambulation Overall status at discharge: patient is progressing back to baseline - Discharge Instructions Instructions: Acute Pericarditis (DC) Follow Up With: Chandan Abel MD [Primary Care Provider] - 08/06/17 8:30 am Additional Instructions: Please follow-up with cardiology as previously planned; they will contact you with an appointment. Please keep appointment for cardiac MRI as previously planned. - Diet and Activity Activity: increase activity as tolerated Diet: advance to your usual diet
[2017-08-02 11:02] VITALS: BP 138/85
--- NOTE | 2017-08-02 16:12 | Electrocardiograph Report ---
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
[2017-08-06 08:57] LABS: ANA IgG by ELISA NONE DETECTED (None Detected); CKMB Percent NOT DONE (0.0-5.0)
[2017-08-07 14:34] LABS: Antiphospholipid IgG High Spec 0 GPL (0-14); Antiphospholipid IgM High Spec 0 MPL (0-14)
== END 2017-08-02 12:27 | disposition home or self-care (01) ==
LOC: 3BNU 02:16 → EMEROO 02:16 → 3BNU 05:28
PROVIDERS: ADMIT Family Medicine; ATTEND Registered Nurse

== ENCOUNTER 2017-10-08 23:16 | Observation (INO) ==
--- NOTE | 2017-10-08 23:26 | Emergency Department Note ---
Disposition Clinical Impression: Cardiomyopathy Qualifiers: Cardiomyopathy type: unspecified Qualified Code(s): I42.9 - Cardiomyopathy, unspecified Chest pain Qualifiers: Chest pain type: unspecified Qualified Code(s): R07.9 - Chest pain, unspecified Disposition: Admitted As Inpatient Condition: Undetermined Referrals: Chandan Abel MD [Primary Care Provider] - Forms: ED Satisfaction Letter Time of Disposition: 00:35 Chest Pain HPI - General Chief Complaint: ED Chest Pain Stated Complaint: CHEST PAIN Time Seen by Provider: 10/08/17 23:19 Source: patient Mode of arrival: ambulatory Limitations: no limitations Vital Signs Reviewed: Yes Nursing Notes Reviewed: Yes - History of Present Illness HPI Narrative: 37-year-old male with history of myocarditis as well as pericarditis arrives to the emergency department with complaint of chest pain sharp in nature in the left side of his chest. No exacerbation factors and no relieving factors. The patient calls it a 6 or 7 out of 10. Patient appears very diaphoretic and denies any other associated symptoms with it. The patient states he last had an MRI of his heart roughly 1 month ago and they diagnosed him with a left ventricular EF of 35%. The patient denies any unilateral leg swelling, bilateral lower extremity swelling associate pedal edema, difficulty breathing, fevers, chills. The patient states that he was playing twister this evening with his children minutes when he really started noticing that it was getting worse. Patient denies any falls or any other injuries associated with it. Severity scale (1-10): 8 - Related Data Home Medications Medication Instructions Recorded Confirmed Chlorthalidone 25 mg PO DAILY 07/18/17 09/25/17 hydrOXYzine HCl [Hydroxyzine HCl] 25 mg PO HS PRN 07/18/17 09/25/17 Ferrous Sulfate [Iron] 325 mg PO DAILY 09/25/17 09/25/17 Psyllium Husk [Fiber] 2 tab PO DAILY 09/25/17 09/25/17 Allergies Allergy/AdvReac Type Severity Reaction Status Date / Time No Known Allergies Allergy Verified 08/31/17 09:17 All systems ED: reviewed and negative except as stated. Constitutional: Reports: weakness. Denies: fever, chills ENT ED: Denies: congestion Cardiovascular: Reports: chest pain. Denies: dyspnea on exertion, orthopnea, edema, syncope Respiratory: Denies: cough, dyspnea Gastrointestinal: Denies: abdominal pain, nausea, vomiting Genitourinary: Denies: urgency, dysuria Musculoskeletal: Denies: back pain, neck pain Integumentary: Denies: rash Neurological: Denies: headache Chest Pain PMH - Past Medical History Medical history: Reports: asthma, CHF, GERD, hypertension, other Surgical history: Reports: no surgical history Psychiatric history: Reports: anxiety Prior Cardiac Testing/Procedures: Cardiac Angiogram (2013 - normal) - Social History Smoking Status: Former smoker Alcohol use: Reports: none Drug use: Reports: none Physical Exam - General Limitations: no limitations General appearance: alert, in distress (Diaphoretic) - Head Head exam: atraumatic, normocephalic, normal inspection - Eye Eye exam: Present: normal appearance, PERRL, EOMI - ENT ENT exam: normal exam, normal oropharynx, mucous membranes moist - Neck Neck exam: Present: normal inspection, full ROM, trachea midline - Chest Chest inspection: Present: normal inspection, symmetric chest wall rise - Respiratory Respiratory exam: Present: normal lung sounds bilaterally - Cardiovascular Cardiovascular exam: Present: normal rhythm, tachycardia, normal heart sounds - Abdominal Exam Abdominal exam: Present: soft, Non-Tender. Absent: tenderness, distention, guarding, rebound, rigidity - Extremities Exam Extremities exam: Present: normal inspection, full ROM. Absent: tenderness, pedal edema - Back Exam Back exam: Present: normal inspection, full ROM. Absent: tenderness - Neurological Exam Neurological exam: Present: alert, oriented X3 - Skin Skin exam: Present: warm, dry, intact, normal color Course Vital Signs Temperature 98.0 F 10/08/17 23:17 Pulse Rate 104 10/08/17 23:17 Respiratory Rate 22 10/08/17 23:17 Blood Pressure 127/81 10/08/17 23:17 O2 Sat by Pulse Oximetry 100 10/08/17 23:17 Temperature 98.0 F 10/08/17 23:22 Pulse Rate 89 10/08/17 23:59 Respiratory Rate 18 10/08/17 23:59 Blood Pressure 134/92 10/08/17 23:59 O2 Sat by Pulse Oximetry 96 10/08/17 23:59 Oxygen Delivery Oxygen Delivery Room Air Chest Pain - MDM Narrative Medical decision making narrative: Patient's workup in the emergency department and trace no acute process to account for patient's symptoms. EKG demonstrates no acute findings. Chest x- ray, d-dimer and troponin are all negative. Given the patient's history of cardiomyopathy associated with previous myocarditis and low EF, we will admit the patient to the hospital for further workup and care. The patient sees Dr. Hickey in cardiology. He denies any other complaints at this time and agrees to plan of care. No further questions or concerns noted. Accepted by Dr. Richmond. - Lab Data Lab results reviewed: Yes I reviewed the patient's lab results. Result diagrams: 10/08/17 23:23 10/08/17 23:23 Lab Results 10/08/17 10/08/17 10/08/17 Range/Units 23:23 23:23 23:23 WBC 9.2 (4.3-11.1) K/mcL RBC 6.25 H (4.19-5.50) M/mcL Hgb 15.9 (12.9-16.9) g/dL Hct 48.7 (37.5-50.1) % MCV 77.9 L (83.0-100.0) fL MCH 25.4 L (28.0-33.3) pg MCHC 32.6 (31.6-35.5) g/dL RDW 13.2 (11.5-14.5) % Plt Count 344 (140-400) K/mcL MPV 9.0 L (9.4-12.4) fL Immature Gran % 0.3 (0-4) % Seg Neutrophils % 56.2 % Lymphocytes % 32.3 % Monocytes % 9.2 % Eosinophils % 1.7 % Basophils % 0.3 % Neutrophils # 5.2 (1.6-8.9) K/mcL Lymphocytes # 3.0 (0.6-4.6) K/mcL Monocytes # 0.9 (0.0-1.3) K/mcL Eosinophils # 0.2 (0.0-0.6) K/mcL Basophils # 0.0 (0.0-0.2) K/mcL D-Dimer (0-500) ng/mLFEU Sodium 139 (136-145) mEq/L Potassium 3.3 L (3.5-5.1) mEq/L Chloride 103 (98-107) mEq/L Carbon Dioxide 27 (23-29) mEq/L BUN 13 (6-20) mg/dL Creatinine 1.31 H (0.70-1.30) mg/dL Est GFR ( Amer) > 60 (> 60) Est GFR (Non-Af Amer) > 60 (> 60) BUN/Creatinine Ratio 10 (6-26) Glucose 121 H (70-105) mg/dL Calculated Osmolality 289 (280-300) Calcium 10.1 (8.6-10.3) mg/dL Troponin I < 0.03 (< 0.04) ng/mL B-Natriuretic Peptide 6 (Less than 100) pg/mL 10/08/17 Range/Units 23:45 WBC (4.3-11.1) K/mcL RBC (4.19-5.50) M/mcL Hgb (12.9-16.9) g/dL Hct (37.5-50.1) % MCV (83.0-100.0) fL MCH (28.0-33.3) pg MCHC (31.6-35.5) g/dL RDW (11.5-14.5) % Plt Count (140-400) K/mcL MPV (9.4-12.4) fL Immature Gran % (0-4) % Seg Neutrophils % % Lymphocytes % % Monocytes % % Eosinophils % % Basophils % % Neutrophils # (1.6-8.9) K/mcL Lymphocytes # (0.6-4.6) K/mcL Monocytes # (0.0-1.3) K/mcL Eosinophils # (0.0-0.6) K/mcL Basophils # (0.0-0.2) K/mcL D-Dimer 400 (0-500) ng/mLFEU Sodium (136-145) mEq/L Potassium (3.5-5.1) mEq/L Chloride (98-107) mEq/L Carbon Dioxide (23-29) mEq/L BUN (6-20) mg/dL Creatinine (0.70-1.30) mg/dL Est GFR ( Amer) (> 60) Est GFR (Non-Af Amer) (> 60) BUN/Creatinine Ratio (6-26) Glucose (70-105) mg/dL Calculated Osmolality (280-300) Calcium (8.6-10.3) mg/dL Troponin I (< 0.04) ng/mL B-Natriuretic Peptide (Less than 100) pg/mL - Radiology Data Radiology results reviewed: Yes I reviewed the patient's radiology results. Chest X-Ray 10/08/17 23:23 IMPRESSION: Negative portable chest. D/ / Farzad Arora MD / Farzad Arora MD Interpreting Provider: Farzad Arora MD - EKG Data EKG attestation: Yes I reviewed and interpreted this EKG. EKG results narrative: Heart rate 92 beats for minute. Normal sinus rhythm. No ST elevation or ST depression noted. Nonspecific changes noted from EKG on 08/01/2017.
[2017-10-08 23:48] LABS: Basophils % 0.3 %; Eosinophils # 0.2 K/mcL (0.0-0.6); Eosinophils % 1.7 %; Hematocrit 48.7 % (37.5-50.1); Hemoglobin 15.9 g/dL (12.9-16.9); Immature Granulocytes % 0.3 % (0-4); Lymphocytes % 32.3 %; Mean Corpuscular HGB Conc 32.6 g/dL (31.6-35.5); Mean Corpuscular Hemoglobin 25.4 pg (28.0-33.3); Mean Corpuscular Volume 77.9 fL (83.0-100.0); Monocytes # 0.9 K/mcL (0.0-1.3); Monocytes % 9.2 %; Neutrophils # 5.2 K/mcL (1.6-8.9); Platelet Count 344 K/mcL (140-400); Red Blood Count 6.25 M/mcL (4.19-5.50); Red Cell Distribution Width 13.2 % (11.5-14.5); Segmented Neutrophils % 56.2 %
[2017-10-09 00:03] LABS: BUN/Creatinine Ratio 10 (6-26); Blood Urea Nitrogen 13 mg/dL (6-20); Calcium 10.1 mg/dL (8.6-10.3); Carbon Dioxide 27 mEq/L (23-29); Chloride 103 mEq/L (98-107); Glucose 121 mg/dL (70-105); Osmolality,Calculated 289 (280-300); Potassium 3.3 mEq/L (3.5-5.1); Sodium 139 mEq/L (136-145); eGFR For African Americans > 60 (> 60); eGFR For Non-African Americans > 60 (> 60)
[2017-10-09 00:04] LABS: Troponin I < 0.03 ng/mL (< 0.04)
--- NOTE | 2017-10-09 00:21 | Emergency Department Note ---
Disposition Clinical Impression: Cardiomyopathy Qualifiers: Cardiomyopathy type: unspecified Qualified Code(s): I42.9 - Cardiomyopathy, unspecified Disposition: Admitted As Inpatient Forms: ED Satisfaction Letter General Adult HPI - General Chief complaint: ED Chest Pain Stated complaint: CHEST PAIN Time Seen by Provider: 10/08/17 23:19 Source: patient Mode of arrival: ambulatory Limitations: no limitations - History of Present Illness Pain Scale: 7 - Related Data Home Medications Medication Instructions Recorded Confirmed Chlorthalidone 25 mg PO DAILY 07/18/17 09/25/17 hydrOXYzine HCl [Hydroxyzine HCl] 25 mg PO HS PRN 07/18/17 09/25/17 Ferrous Sulfate [Iron] 325 mg PO DAILY 09/25/17 09/25/17 Psyllium Husk [Fiber] 2 tab PO DAILY 09/25/17 09/25/17 Allergies Allergy/AdvReac Type Severity Reaction Status Date / Time No Known Allergies Allergy Verified 08/31/17 09:17 Constitutional: Reports: weakness. Denies: fever, chills ENT ED: Denies: congestion Cardiovascular: Reports: chest pain. Denies: dyspnea on exertion, orthopnea, edema, syncope Respiratory: Denies: cough, dyspnea Gastrointestinal: Denies: abdominal pain, nausea, vomiting Genitourinary: Denies: urgency, dysuria Musculoskeletal: Denies: back pain, neck pain Integumentary: Denies: rash Neurological: Denies: headache Past Medical History - Past Medical History Medical history: Reports: asthma, CHF, GERD, hypertension, other Surgical history: Reports: no surgical history Psychiatric history: Reports: anxiety - Social History Smoking Status: Former smoker Smokeless Tobacco Status: No Alcohol use: Reports: none Drug use: Reports: none Physical Exam - General Limitations: no limitations General appearance: alert, in distress (Diaphoretic) Course Vital Signs Temperature 98.0 F 10/08/17 23:17 Pulse Rate 104 10/08/17 23:17 Respiratory Rate 22 10/08/17 23:17 Blood Pressure 127/81 10/08/17 23:17 O2 Sat by Pulse Oximetry 100 10/08/17 23:17 Temperature 98.0 F 10/08/17 23:22 Pulse Rate 89 10/08/17 23:59 Respiratory Rate 18 10/08/17 23:59 Blood Pressure 134/92 10/08/17 23:59 O2 Sat by Pulse Oximetry 96 10/08/17 23:59 Oxygen Delivery Oxygen Delivery Room Air Medical Decision Making - Lab Data Result diagrams: 10/08/17 23:23 10/08/17 23:23 Lab Results 10/08/17 10/08/17 10/08/17 Range/Units 23:23 23:23 23:23 WBC 9.2 (4.3-11.1) K/mcL RBC 6.25 H (4.19-5.50) M/mcL Hgb 15.9 (12.9-16.9) g/dL Hct 48.7 (37.5-50.1) % MCV 77.9 L (83.0-100.0) fL MCH 25.4 L (28.0-33.3) pg MCHC 32.6 (31.6-35.5) g/dL RDW 13.2 (11.5-14.5) % Plt Count 344 (140-400) K/mcL MPV 9.0 L (9.4-12.4) fL Immature Gran % 0.3 (0-4) % Seg Neutrophils % 56.2 % Lymphocytes % 32.3 % Monocytes % 9.2 % Eosinophils % 1.7 % Basophils % 0.3 % Neutrophils # 5.2 (1.6-8.9) K/mcL Lymphocytes # 3.0 (0.6-4.6) K/mcL Monocytes # 0.9 (0.0-1.3) K/mcL Eosinophils # 0.2 (0.0-0.6) K/mcL Basophils # 0.0 (0.0-0.2) K/mcL D-Dimer (0-500) ng/mLFEU Sodium 139 (136-145) mEq/L Potassium 3.3 L (3.5-5.1) mEq/L Chloride 103 (98-107) mEq/L Carbon Dioxide 27 (23-29) mEq/L BUN 13 (6-20) mg/dL Creatinine 1.31 H (0.70-1.30) mg/dL Est GFR ( Amer) > 60 (> 60) Est GFR (Non-Af Amer) > 60 (> 60) BUN/Creatinine Ratio 10 (6-26) Glucose 121 H (70-105) mg/dL Calculated Osmolality 289 (280-300) Calcium 10.1 (8.6-10.3) mg/dL Troponin I < 0.03 (< 0.04) ng/mL B-Natriuretic Peptide 6 (Less than 100) pg/mL 10/08/17 Range/Units 23:45 WBC (4.3-11.1) K/mcL RBC (4.19-5.50) M/mcL Hgb (12.9-16.9) g/dL Hct (37.5-50.1) % MCV (83.0-100.0) fL MCH (28.0-33.3) pg MCHC (31.6-35.5) g/dL RDW (11.5-14.5) % Plt Count (140-400) K/mcL MPV (9.4-12.4) fL Immature Gran % (0-4) % Seg Neutrophils % % Lymphocytes % % Monocytes % % Eosinophils % % Basophils % % Neutrophils # (1.6-8.9) K/mcL Lymphocytes # (0.6-4.6) K/mcL Monocytes # (0.0-1.3) K/mcL Eosinophils # (0.0-0.6) K/mcL Basophils # (0.0-0.2) K/mcL D-Dimer 400 (0-500) ng/mLFEU Sodium (136-145) mEq/L Potassium (3.5-5.1) mEq/L Chloride (98-107) mEq/L Carbon Dioxide (23-29) mEq/L BUN (6-20) mg/dL Creatinine (0.70-1.30) mg/dL Est GFR ( Amer) (> 60) Est GFR (Non-Af Amer) (> 60) BUN/Creatinine Ratio (6-26) Glucose (70-105) mg/dL Calculated Osmolality (280-300) Calcium (8.6-10.3) mg/dL Troponin I (< 0.04) ng/mL B-Natriuretic Peptide (Less than 100) pg/mL Attestation Statement - Attestation Attestation: I examined this patient and my medical decision-making was reviewed with the Resident Physician. I agree with the documented findings, disposition and treatment plan as described except to the extent set forth below. 37 year old male with history of mycarditis and dilated cardiomyopathy with an EF of 35% presents to the ED with exertional dypsnea and fatigue. He follows with Dr Hickey. His workup is otherwise unremarkbale although it appears that he has active exertional dyspneaon exam without becoming hypoxic but his heart dose increase. We will admit to medicine. d-dimer negative
[2017-10-09] MEDS ORDERED: *HR* HYDROcodone/Acet 5/325 mg TABLET PO PRN (01:29)
[2017-10-09] MEDS ORDERED: Acetaminophen 325 MG TABLET PO PRN (01:29)
[2017-10-09] MEDS ORDERED: Naloxone 0.4 MG/ML INJ IVP PRN (01:29)
--- NOTE | 2017-10-09 01:44 | Internal Med History&Physical ---
Date of Encounter: 10/09/17 Time of Encounter: 01:00 Internal Medicine - H&P: HPI Chief complaint: Chest pain Admitted From: Home Plans for Post Hospital Care: Home History of present illness: Mr. Foy is a 37 year old male presented to ER for chest pain. Past medical history is significant for cardiomyopathy and pericarditis. Patient said he had one episode of chest pain last night. Since this evening, he started to have intermittent chest pain with chest pressure/tightness. Patient said the chest pressure and tightness is constant. Chest pain is intermittent, lasted several second, sharp, no radiation. Patient has shortness of breath. Patient denies nausea. Patient had diaphoresis. Patient said he feels very tired, with lightheaded, and almost passed out. In the emergency room, EKG and chest x-ray unremarkable. D-dimer negative. Patient was admitted for further evaluation. Past Med Surg Social Fam HX - Past Medical History Medical history: asthma, CHF, GERD, hypertension, other Psychiatric history: anxiety - Past Surgical History Surgical History: no surgical history - Social History Smoking Status: Former smoker Smokeless Tobacco Status: No Alcohol use: none Drug use: none - Family History Mother Living Status: Hx Family Cardiac Disorders: Yes (CHF) Hx Family Endocrine Disorder: Yes (DM) Father Hx Family Cardiac Disorders: Yes Internal Medicine - H&P: Meds RX: Chlorthalidone 25 mg PO DAILY 07/18/17 [History] RX: hydrOXYzine HCl [Hydroxyzine HCl] 25 mg PO HS PRN 07/18/17 [History] Ferrous Sulfate [Iron] 325 mg PO DAILY 09/25/17 [History] Psyllium Husk [Fiber] 2 tab PO DAILY 09/25/17 [History] 3 Allergy/AdvReac Type Severity Reaction Status Date / Time No Known Allergies Allergy Verified 08/31/17 09:17 All Systems PM: A 10-system review of systems was performed and is negative for pertinent findings except as documented above in the HPI. - Constitutional Vitals: Temp Pulse Resp BP Pulse Ox 98 F 72 17 101/67 97 10/09/17 01:14 10/09/17 01:14 10/09/17 01:14 10/09/17 01:14 10/09/17 01:14 General appearance: Present: mild distress, A&O X 3, answers questions appropriately - Head Head exam: Present: atraumatic, normocephalic - Eye Eye exam: Present: PERRL, conjuntiva pink, sclera anicteric Pupils: Present: PERRL - Neck Neck exam general surgery: Present: supple, trachea midline. Absent: lymphadenopathy - Respiratory Respiratory exam: Present: CTAB. Absent: accessory muscle use, rales, rhonchi, wheezes - Cardiovascular Cardiovascular exam: Present: RRR, +S1, +S2. Absent: diastolic murmur, gallop, rubs, systolic murmur - GI/Abdominal GI/Abdominal exam: Present: normal bowel sounds, soft, no peritoneal signs. Absent: distended, tenderness - Extremities Exam Extremities exam: Present: warm, radial pulses palpable and symmetrical. Absent : calf tenderness, cyanotic, pedal edema - Neurological Exam Neurological exam: Present: CN II-XII intact, oriented X3, no focal deficits. Absent: pronater drift, facial droop, speech deficit - Skin Skin exam: Present: dry, intact Internal Med - H&P Results - Labs CBC & Chem 7: 10/08/17 23:23 10/08/17 23:23 - EKG Data -: EKG Interpreted by Myself EKG shows normal: sinus rhythm Rate: normal - Assessment and plan (1) DVT prophylaxis Current Visit: Yes Status: Acute Assessment and plan: Patient is young and ambulating well. No anticoagulation placed. (2) Cardiomyopathy Current Visit: Yes Status: Acute Assessment and plan: Patient said he has history of cardiomyopathy. Patient had echo in our hospital in July 2017, which shows EF 60%. However, patient told ER physician he had echo 1 months ago in [facility], which shows EF 35%. - We will repeat echo in a.m. - Patient shows no signs of CHF exacerbation at this point. Qualifiers: Cardiomyopathy type: unspecified Qualified Code(s): I42.9 - Cardiomyopathy , unspecified (3) Chest pain Current Visit: Yes Status: Acute Assessment and plan: Etiology is undetermined. Patient had LHC in Jul 2017, no stenosis identified. Patient denies cocaine use. D-dimer negative, patient has no desaturation, PE is less likely. Patient had pericarditis about 2 months ago, his EKG in ER shows no signs of pericarditis. - Continue cardiac monitoring. - We will check 3 sets of troponin - Echocardiogram to rule out worsen cardiomyopathy or pericarditis. - U tox Qualifiers: Chest pain type: unspecified Qualified Code(s): R07.9 - Chest pain, unspecified (4) Hypertension Current Visit: No Status: Acute Assessment and plan: Continue home meds. Qualifiers: Hypertension type: essential hypertension Qualified Code(s): I10 - Essential (primary) hypertension (5) Hypokalemia Current Visit: No Status: Acute Assessment and plan: Potassium supplement. - Time Spent With Patient Total time spent is greater than 50% in coordination of care (as documented) at patient's floor/unit and/or counseling patient: 40 min Greater than 35 minutes
[2017-10-09] MEDS: Nitroglycerin 0.4 MG TAB.SUBL SL PRN ×3 (02:07→02:19)
[2017-10-09] MEDS: 0.9 % Sodium Chloride 1,000 ML IVC SCH ×2 (02:08→17:36)
[2017-10-09 04:54] LABS: Basophils % 0.5 %; Eosinophils # 0.2 K/mcL (0.0-0.6); Eosinophils % 2.5 %; Hematocrit 42.6 % (37.5-50.1); Immature Granulocytes % 0.4 % (0-4); Lymphocytes # 2.6 K/mcL (0.6-4.6); Lymphocytes % 34.9 %; Mean Corpuscular HGB Conc 32.6 g/dL (31.6-35.5); Mean Corpuscular Hemoglobin 25.5 pg (28.0-33.3); Mean Platelet Volume 9.1 fL (9.4-12.4); Monocytes # 0.6 K/mcL (0.0-1.3); Monocytes % 8.5 %; Platelet Count 291 K/mcL (140-400); Red Blood Count 5.46 M/mcL (4.19-5.50); Red Cell Distribution Width 13.3 % (11.5-14.5); Segmented Neutrophils % 53.2 %
[2017-10-09 05:07] LABS: Hemoglobin 13.9 g/dL (12.9-16.9)
[2017-10-09 05:16] LABS: BUN/Creatinine Ratio 11 (6-26); Blood Urea Nitrogen 13 mg/dL (6-20); Calcium 9.1 mg/dL (8.6-10.3); Carbon Dioxide 27 mEq/L (23-29); Chloride 104 mEq/L (98-107); Glucose 128 mg/dL (70-105); Osmolality,Calculated 292 (280-300); Potassium 3.2 mEq/L (3.5-5.1); Sodium 140 mEq/L (136-145); Troponin I < 0.03 ng/mL (< 0.04); eGFR For African Americans > 60 (> 60); eGFR For Non-African Americans > 60 (> 60)
--- NOTE | 2017-10-09 14:20 | Discharge Summary ---
Orders not resulted at time of discharge: Pending orders 10/09/17 01:31 EV echocardiogram Routine Date of Encounter: 10/09/17 Time of Encounter: 14:16 - Discharge Diagnosis (1) Chest pain Priority: Primary Status: Acute Qualifiers: Chest pain type: unspecified Qualified Code(s): R07.9 - Chest pain, unspecified (2) Hypertension Priority: Primary Status: Acute Qualifiers: Hypertension type: essential hypertension Qualified Code(s): I10 - Essential (primary) hypertension (3) Hypokalemia Priority: Primary Status: Acute (4) Cardiomyopathy Priority: Primary Status: Acute Qualifiers: Cardiomyopathy type: unspecified Qualified Code(s): I42.9 - Cardiomyopathy , unspecified Hospital course: Mr. Foy is a 37 year old male with past medical history hypertension, pericarditis and cardiomyopathy who presented to [facility] on 10[facility]2017 with complaints of chest pain. He was placed in observation status for further workup and treatment and cardiology consultation. Hospital course workup included serial negative troponin, EKG without acute ST changes. 07/2017 LHC showed normal coronary arteries, normal left ventricle and EF 60%. 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 Plan was for outpatient Holter monitor how her patient now with recurrent chest pain. Discussed case with cardiology on 10/09/2017 who recommends transfer back to [facility] for further evaluation/treatment by [facility] heart failure clinic. Discussed with patient and he is agreeable to transfer. Discussed case with [facility] transfer center and patient will be transferred once bed available. Discharge discussed with: patient (Seen and examined at bedside. Patient is known to me from previous admission. Still with intermittent chest pressure, generalize malaise and fatigue. He is agreeable to transfer to [facility] once bed available.) - Time Spent with Patient Total time spent providing and/or coordinating discharge services: - Discharge Medications Home Medications: Chlorthalidone 25 mg PO DAILY 07/18/17 [History] hydrOXYzine HCl [Hydroxyzine HCl] 25 mg PO HS PRN 07/18/17 [History] Ferrous Sulfate [Iron] 325 mg PO DAILY 09/25/17 [History] Psyllium Husk [Fiber] 2 tab PO DAILY 09/25/17 [History] Metoprolol Succinate [Toprol Xl] 25 mg PO DAILY 10/09/17 [History] Pantoprazole Sodium 40 mg PO BID 10/09/17 [History] Allergies/Adverse Reactions: 3 Allergy/AdvReac Type Severity Reaction Status Date / Time No Known Allergies Allergy Verified 10/09/17 08:47 Date of admission: 10/09/17 00:39 Primary care physician: Chandan Abel MD Discharging clinician: Brooke Galvan Anticipated date of discharge: 10/09/17 - Constitutional Vitals: Temp Pulse Resp BP Pulse Ox 98.1 F 87 20 118/68 97 10/09/17 10:55 10/09/17 10:55 10/09/17 10:55 10/09/17 10:55 10/09/17 10:55 General appearance: Present: mild distress, A&O X 3, answers questions appropriately - Head Head exam: Present: atraumatic, normocephalic - Eye Eye exam: Present: PERRL, conjuntiva pink, sclera anicteric Pupils: Present: PERRL - Neck Neck exam general surgery: Present: supple, trachea midline. Absent: lymphadenopathy - Respiratory Respiratory exam: Present: CTAB. Absent: accessory muscle use, rales, rhonchi, wheezes - Cardiovascular Cardiovascular exam: Present: RRR, +S1, +S2. Absent: diastolic murmur, gallop, rubs, systolic murmur - GI/Abdominal GI/Abdominal exam: Present: normal bowel sounds, soft, no peritoneal signs. Absent: distended, tenderness - Extremities Exam Extremities exam: Present: warm, radial pulses palpable and symmetrical. Absent : calf tenderness, cyanotic, pedal edema - Neurological Exam Neurological exam: Present: CN II-XII intact, oriented X3, no focal deficits. Absent: pronater drift, facial droop, speech deficit - Skin Skin exam: Present: dry, intact - Patient Status Disposition: Transfer Other Condition: Good Functional capacity at discharge: independent ambulation Overall status at discharge: patient is progressing back to baseline - Discharge Instructions Follow Up With: Chandan Abel MD [Primary Care Provider] - - Diet and Activity Activity: increase activity as tolerated Diet: advance to your usual diet
--- NOTE | 2017-10-09 16:20 | Electrocardiograph Report ---
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
[2017-10-09 16:33] VITALS: BP 111/72
== END 2017-10-09 18:55 | disposition other institution (70) ==
LOC: 3BNU 23:16 → EMEROO 23:16 → 3BNU 10-09 01:03
PROVIDERS: ADMIT Internal Medicine; ATTEND Internal Medicine